=== PATIENT | female | born 1960 | race Caucasian/White ===

== ENCOUNTER 2019-01-04 11:18 | Emergency (ER) | payer OTHER ==
[2019-01-04 11:41] VITALS: BP 111/63; PULSE 98; O2SAT 97
[2019-01-04] MEDS ORDERED: TORAdol 30 mg Injection IM ONE (11:45)
[2019-01-04] MEDS ORDERED: TORAdol 30 mg Injection ONE (11:49)
--- NOTE | 2019-01-04 11:59 | ERPHSYRPT ---
- History of Present Illness Time Seen by Provider: 01/04/19 11:58 Source: patient Exam Limitations: no limitations Patient Subjective Stated Complaint: states yesterday began having pain to left foot. today pain is increased and has redness to left great toe. Triage Nursing Assessment: amublated to room per self guarding left foot. redness and slight swelling noted to left great toe. tender to touch Physician History: states yesterday began having pain to left foot. today pain is increased and has redness to left great toe. Method of Injury: unknown Occurred: yesterday Quality: constant Severity of Pain-Max: moderate Severity of Pain-Current: moderate Allergies/Adverse Reactions: glycopyrrolate [From Ruel] Allergy (Verified 09/24/12 06:20) headache and increased b/p Home Medications: Insulin Detemir [Levemir] 40 unit SQ BID 09/22/12 [History] Insulin Lispro [Humalog] 100 unit SQ PRN 09/22/12 [History] Levothyroxine Sodium [Synthroid] DAILY 09/22/12 [History] Lisinopril/Hydrochlorothiazide [Lisinopril-Hctz 20-25 mg Tab] 1 each PO DAILY [History] Magnesium Oxide 400 mg [Mag-Ox 400] 800 mg PO DAILY 09/22/12 [History] Metformin HCl 500 mg [Glucophage 500 MG] 1,000 mg PO BID 09/22/12 [History] Metoprolol Tartrate 25 mg [Lopressor 25MG Tab] 50 mg PO DAILY 09/22/12 [ History] Hx Tetanus, Diphtheria Vaccination/Date Given: No Hx Influenza Vaccination/Date Given: Yes Hx Pneumococcal Vaccination/Date Given: Yes Immunizations Up to Date: No - Review of Systems Constitutional: No Fever, No Chills Eyes: No Symptoms Ears, Nose, & Throat: No Symptoms Respiratory: No Cough, No Dyspnea Cardiac: No Chest Pain, No Edema, No Syncope Abdominal/Gastrointestinal: No Abdominal Pain, No Nausea, No Vomiting, No Diarrhea Genitourinary Symptoms: No Dysuria Musculoskeletal: No Back Pain, No Neck Pain Skin: Cellulitis, No Rash Neurological: No Dizziness, No Focal Weakness, No Sensory Changes Psychological: No Symptoms Endocrine: No Symptoms All Other Systems: Reviewed and Negative - Past Medical History Pertinent Past Medical History: Yes Neurological History: No Pertinent History ENT History: No Pertinent History Cardiac History: High Cholesterol, Hypertension Respiratory History: Asthma, Pneumonia Endocrine Medical History: Diabetes Type II, Hypothyroidism Musculoskeletal History: Arthritis GI Medical History: Gallbladder Disease, Pancreatitis, Ulcer Psycho-Social History: No Pertinent History Female Reproductive Disorders: No Pertinent History - Past Surgical History Past Surgical History: Yes Neuro Surgical History: No Pertinent History Cardiac: No Pertinent History Respiratory: No Pertinent History Gastrointestinal: Cholecystectomy Genitourinary: No Pertinent History Musculoskeletal: Orthopedic Surgery Female Surgical History: Section, Hysterectomy Other Surgical History: times 2,stomach kassi times 2,rt arm ortho surgery - Social History Smoking Status: Never smoker Exposure to second hand smoke: Yes Drug Use: none Patient Lives Alone: Yes - Female History Hx Now: No - Nursing Vital Signs Nursing Vital Signs: Initial Vital Signs Temperature 98 F 01/04/19 11:30 Pulse Rate 98 H 01/04/19 11:30 Respiratory Rate 16 01/04/19 11:30 Blood Pressure 111/63 01/04/19 11:30 O2 Sat by Pulse Oximetry 97 01/04/19 11:30 Pain Scale Pain Intensity 8 - Physical Exam General Appearance: alert Eyes, Ears, Nose, Throat Exam: moist mucous membranes Neck Exam: non-tender, supple Cardiovascular/Respiratory Exam: chest non-tender, normal breath sounds, regular rate/rhythm, no respiratory distress Gastrointestinal/Abdominal Exam: non-tender, guarding Back Exam: normal inspection, No vertebral tenderness Foot Exam: left foot: pain, soft tissue tenderness, swelling Neuro/Tendon Exam: normal sensation, normal motor functions Mental Status Exam: alert, oriented x 3, cooperative Skin Exam: normal color, warm, dry SpO2: 97 - Course Nursing assessment & vital signs reviewed: Yes Ordered Tests: Active Orders 24 hr Category Date Time Status CBC W DIFF Stat Lab 01/04/19 12:00 Completed CMP Stat Lab 01/04/19 12:00 Received Uric Acid Stat Lab 01/04/19 12:00 Received Medication Summary Discontinued Medications Generic Name Dose Route Start Last Admin Trade Name Freq PRN Reason Stop Dose Admin Ketorolac Tromethamine 60 mg 01/04/19 11:45 01/04/19 11:52 Toradol 30 Mg Injection IM 01/04/19 11:46 60 mg STAT ONE Administration Ketorolac Tromethamine Confirm 01/04/19 11:49 Toradol 30 Mg Injection Administered 01/04/19 11:50 Dose 60 mg .ROUTE .STK-MED ONE Lab/Rad Data: Laboratory Result Diagrams 01/04/19 12:00 Laboratory Results 01/04/19 Range/Units 12:00 WBC 6.5 (4.0-10.5) K/mm3 RBC 4.64 (4.1-5.4) M/mm3 Hgb 14.0 (12.0-16.0) gm/dl Hct 43.2 (35-47) % MCV 93.1 (78-100) fl MCH 30.2 (26-32) pg MCHC 32.4 (32-36) g/dl RDW 13.7 (11.5-14.0) % Plt Count 248 (150-450) K/mm3 MPV 9.1 (6-9.5) fl Gran % 63.7 (36.0-66.0) % Eos # (Auto) 0.14 (0-0.5) Absolute Lymphs (auto) 1.55 (1.0-4.6) Absolute Monos (auto) 0.64 (0.0-1.3) Lymphocytes % 23.8 L (24.0-44.0) % Monocytes % 9.8 (0.0-12.0) % Eosinophils % 2.2 (0.00-5.0) % Basophils % 0.5 (0.0-0.4) % Absolute Granulocytes 4.14 (1.4-6.9) Basophils # 0.03 (0-0.4) - Progress Progress: improved, pain not gone completely Counseled pt/family regarding: lab results, diagnosis, need for follow-up - Departure Departure Disposition: Home Clinical Impression: Gout attack Qualifiers: Gout site: toe Gout etiology: due to renal impairment Laterality: left Qualified Code(s): M10.372 - Gout due to renal impairment, left ankle and foot Condition: Stable Critical Care Time: No Referrals: RASHID MCCOLLUM MD [Primary Care Provider] - Instructions: Lifestyle Changes to Manage Gout, Gout Additional Instructions: JOAN ROSEN was seen on 01/04/19 n the Emergency Room. At that time you were treated for an emergent condition, during your visit Laboratory, Radiology and/or other procedures may have been ordered. It is very important that you follow-up with your Primary Care Physician RASHID MCCOLLUM within the next 24- 48 hours to review your Emergency Room visit and the final results of testing that was ordered. Some test results such as Urine Cultures, Blood Cultures, and other cultures if ordered will not be finalized for 24-48 hours. If you do not have a Primary Care Provider please call the medical records department at [phone] ext [phone] to obtain a copy of your results or you may sign into our patient portal to obtain these results by visiting us @ [email or web address] and completing the following steps: 1. Click on the Patient Portal link 2. Click the Patient Self Enrollment Link to complete the enrollment form and entering your 3. Once the enrollment form is completed you will receive an email with a temporary ID and password at the email address you provided. 4. Next choose a user name and password. Your user name must be at least 4 characters long and your password must be at least 4 characters long. 5. Choose a security question from the list and provide your answer to the question. If you already have signed into the Health Portal you may access your Health Care Information 15/04 by the following steps: 1. Login to our website @ [email or web address] 2. Enter your original user name and password. FAQS The [facility] Health Portal is an online tool that contains your Lab Results, Radiology Reports, Visit History, Discharge Instructions and Health Summary Lab and Radiology Results will not be available for 72 hours on the portal. The Portal is a secure site, passwords are encryted and URLs are re-written so they cannot be copied and pasted. You and authorized family members are the only ones who can access your Portal. Also there is a timeout feature that protects your information if you leave the Portal page open. If you have technical difficulty please use the Contact Us link on the page this will allow you to submit any questions you have regarding the Portal or you may contact the Medical Record Department at [phone] ext [phone]. Forms: Work/School Release Form Prescriptions: Indomethacin 25 mg [Indocin 25 MG] 25 mg PO TID #20 capsule
[2019-01-04 12:11] LABS: BASOPHIL % 0.5 % (0.0-0.4); Basophil (Absolute #) 0.03 (0-0.4); Eosinophil % 2.2 % (0.00-5.0); Eosinophil (Absolute #) 0.14 (0-0.5); Granulocyte Absolute (ANC) 4.14 (1.4-6.9); Granulocytes % 63.7 % (36.0-66.0); Hematocrit 43.2 % (35-47); Lymphocyte (Absolute #) 1.55 (1.0-4.6); Lymphocytes % 23.8 % (24.0-44.0); Mean Cell Volume 93.1 fl (78-100); Mean Corpuscular Hemoglobin 30.2 pg (26-32); Mean Corpuscular Hgb Concent. 32.4 g/dl (32-36); Mean Platelet Volume 9.1 fl (6-9.5); Monocyte (Absolute #) 0.64 (0.0-1.3); Monocytes % 9.8 % (0.0-12.0); Platelet Count 248 K/mm3 (150-450); Red Blood Count 4.64 M/mm3 (4.1-5.4); Red Cell Distribution Width 13.7 % (11.5-14.0); White Blood Count 6.5 K/mm3 (4.0-10.5)
[2019-01-04 12:25] LABS: ALBUMIN 4.1 g/dL (3.5-5.0); ALKALINE PHOSPHATASE 70 U/L (38-126); BLOOD UREA NITROGEN 17 mg/dL (7-17); CHLORIDE 103 mmol/L (98-107); Carbon Dioxide 30 mmol/L (22-30); Creatinine 1 0.75 mg/dL (0.52-1.04); Glucose 102 mg/dL (74-106); SGOT/AST 24 U/L (14-36); SGPT/ALT 15 U/L (0-35); SODIUM 141 mmol/L (137-145); Total Protein 7.4 g/dL (6.3-8.2); Uric Acid 7.5 mg/dL (2.6-6.0)
== END 2019-01-04 12:56 | disposition home or self-care (01) ==
LOC: ED 11:18
DX: M10.372 Gout due to renal impairment, left ankle and foot (principal); M79.672 Pain in left foot; I10 Essential (primary) hypertension; E78.00 Pure hypercholesterolemia, unspecified; E11.9 Type 2 diabetes mellitus without complications; Z79.4 Long term (current) use of insulin; E03.9 Hypothyroidism, unspecified
CPT/HCPCS: 36415; 80053; 84550; 85025; 96372; 99284; J1885

== ENCOUNTER 2019-08-10 08:15 | Emergency (ER) | payer OTHER ==
[2019-08-10] MEDS ORDERED: MORPHINE SULFATE 10 MG/ML IV ONE (08:49)
[2019-08-10] MEDS ORDERED: Zofran 4 MG/2 ML VIAL IV ONE (08:49)
--- NOTE | 2019-08-10 08:50 | ERPHSYRPT ---
- History of Present Illness Time Seen by Provider: 08/10/19 08:35 Source: patient Exam Limitations: no limitations Patient Subjective Stated Complaint: Pt states "I woke up yesterday morning and both sides of my neck are killing me. It hurts so bad." Triage Nursing Assessment: Pt presented alert and oriented X 3, skin pwd Pt ambulates with an upright steady gait, able to speak in clear full sentences. Pt in rubbing and holding her neck, no apparent respiratory distress. Physician History: The patient is a 58-year-old female with a past history significant for hypertension and diabetes presents with a chief complaint of neck pain. Onset was yesterday morning upon awakening. She endorses having neck pain located to the left and right lateral aspect of her neck and posterior aspect of her neck that has reportedly been persistent since yesterday morning and gradually getting worse since that time. The pain is described as a sharp pain that waxes and wanes in severity and is currently moderate to severe. HEENT there is having difficulty ranging her neck, specifically laterally left and right in addition to extending and flexing the neck. The patient also dorsum and pain with swallowing. Prior to this, she denied any specific illness, specifically URI symptoms,, toothache, immunosuppression, recent trauma. The patient also dorsum and occipital headache due to the pain. She reportedly experienced neck pain over 20 years ago but does not suffer from neck pain frequently. She denied having any dizziness, changes in her visual acuity, diplopia, numbness or tingling in her hands and feet her any focal weakness. The patient is not anticoagulated and denies hx of malignancy. She reportedly took 2 aspirin this morning for the pain with no relief and decided to come to the emergency department for further evaluation and management. Timing/Duration: yesterday Severity: severe Modifying Factors: Improves With: movement Associated Symptoms: No nausea, No vomiting, No abdominal pain Allergies/Adverse Reactions: glycopyrrolate [From Ruel] Allergy (Verified 01/04/19 12:30) headache and increased b/p Home Medications: Levothyroxine Sodium [Synthroid] 75 mcg PO DAILY 09/22/12 [History] Metformin HCl 500 mg [Glucophage 500 MG] 1,000 mg PO BID 09/22/12 [History] Metoprolol Tartrate 25 mg [Lopressor 25MG Tab] 50 mg PO DAILY 09/22/12 [ History] Empagliflozin [Jardiance] 10 mg PO DAILY 01/04/19 [History] Ergocalciferol (Vitamin D2) [Vitamin D2] 50,000 units PO WEEKLY 01/04/19 [ History] Furosemide 20 mg [Lasix 20 mg] 20 mg PO DAILY 01/04/19 [History] Liraglutide [Victoza 2-Juan Pablo] 18 mg IJ DAILY 01/04/19 [History] Losartan Potassium [Cozaar] 100 mg PO DAILY 01/04/19 [History] Dulaglutide [Trulicity] 0.5 ml IM DAILY 08/10/19 [History] Hx Tetanus, Diphtheria Vaccination/Date Given: No Hx Influenza Vaccination/Date Given: No Hx Pneumococcal Vaccination/Date Given: No Immunizations Up to Date: Yes - Review of Systems Constitutional: No Fever, No Chills, No Fatigue, No Weight Loss Eyes: No Symptoms Ears, Nose, & Throat: Throat Pain, Painful Swallowing, Other (Neck pain), No Nose Congestion Cardiac: No Symptoms, No Chest Pain, No Edema, No Palpitations, No Syncope Abdominal/Gastrointestinal: No Abdominal Pain, No Nausea, No Vomiting Musculoskeletal: Neck Pain, No Fall, No Injury Skin: No Symptoms Neurological: Headache, No Dizziness, No Focal Weakness, No Gait Changes, No Sensory Changes, No Speech Changes, No Tremors, No Vertigo Endocrine: No Symptoms Hematologic/Lymphatic: No Symptoms All Other Systems: Reviewed and Negative - Past Medical History Pertinent Past Medical History: Yes Neurological History: No Pertinent History ENT History: No Pertinent History Cardiac History: High Cholesterol, Hypertension Respiratory History: Asthma, Pneumonia Endocrine Medical History: Diabetes Type II, Hypothyroidism Musculoskeletal History: Arthritis GI Medical History: Gallbladder Disease, Pancreatitis, Ulcer Psycho-Social History: No Pertinent History Female Reproductive Disorders: No Pertinent History - Past Surgical History Past Surgical History: Yes Neuro Surgical History: No Pertinent History Cardiac: No Pertinent History Respiratory: No Pertinent History Gastrointestinal: Cholecystectomy Genitourinary: No Pertinent History Musculoskeletal: Orthopedic Surgery Female Surgical History: Section, Hysterectomy Other Surgical History: times 2,stomach kassi times 2,rt arm ortho surgery - Social History Smoking Status: Never smoker Exposure to second hand smoke: Yes Drug Use: none Patient Lives Alone: Yes - Female History Hx Now: No - Nursing Vital Signs Nursing Vital Signs: Initial Vital Signs Temperature 98.3 F 08/10/19 08:19 Pulse Rate 98 H 08/10/19 08:19 Respiratory Rate 16 08/10/19 08:19 Blood Pressure 173/84 08/10/19 08:19 O2 Sat by Pulse Oximetry 99 08/10/19 08:19 Pain Scale Pain Intensity 5 - Physical Exam General Appearance: mild distress Eye Exam: PERRL/EOMI, eyes nml inspection, No scleral icterus, No pale conjunctivae Ears, Nose, Throat Exam: pharynx normal, moist mucous membranes, other (No evidence of dental infection, [place] or [employer]), No TM abnormal (R), No TM abnormal (L), No pharyngeal erythema, No tonsillar exudate Neck Exam: midline tenderness, other (Moderate tenderness noted upon palpation to the lateral and posterior aspects of neck. Patient had difficulty ranging neck due to pain with lateral ranging, extension, and flexion. Patient had pain with trying to stick her tongue out. ), No JVD, No subcutaneous emphysema Respiratory Exam: normal breath sounds, lungs clear, respiratory distress, No chest tenderness Cardiovascular Exam: regular rate/rhythm, normal heart sounds, normal peripheral pulses, capillary refill <2 sec, No murmur, No friction rub, No gallop, No tachycardia Gastrointestinal/Abdomen Exam: soft, No tenderness Extremity Exam: normal inspection Neurologic Exam: alert, oriented x 3, cooperative, manager income tax II-XII nml as tested, normal mood/affect, nml cerebellar function, sensation nml, No motor deficits, No sensory deficit, No disoriented, No confusion, No intoxicated appearance, No facial droop, No slurred speech, No dysarthria, No EOM palsy Skin Exam: normal color, warm, dry Lymphatic Exam: No adenopathy SpO2 Interpretation: normal SpO2: 99 O2 Delivery: Room Air - Course Nursing assessment & vital signs reviewed: Yes - Radiology Exams Chest X-ray Interpretation: Interpreted by me, Reviewed by me (No acute process involving the chest. Appears there may be soft tissue swelling noted to the R lateral neck deviating her trachea to the L. F/u CT neck pending) Ordered Tests: Medication Summary Discontinued Medications Generic Name Dose Route Start Last Admin Trade Name Freq PRN Reason Stop Dose Admin Morphine Sulfate 6 mg 08/10/19 08:49 08/10/19 09:11 Morphine Sulfate 10 Mg/Ml IV 08/10/19 08:50 6 mg STAT ONE Administration Morphine Sulfate Confirm 08/10/19 09:07 Morphine Sulfate 10 Mg/Ml Administered 08/10/19 09:08 Dose 10 mg .ROUTE .STK-MED ONE Ondansetron HCl 4 mg 08/10/19 08:49 08/10/19 09:10 Zofran 4 Mg/2 Ml Vial IV 08/10/19 08:50 4 mg STAT ONE Administration Ondansetron HCl Confirm 08/10/19 09:07 Zofran 4 Mg/2 Ml Vial Administered 08/10/19 09:08 Dose 4 mg .ROUTE .STK-MED ONE Lab/Rad Data: Laboratory Result Diagrams 08/10/19 08:45 08/10/19 09:26 Laboratory Results 08/10/19 08/10/19 Range/Units 09:26 08:45 WBC 9.1 (4.0-10.5) K/mm3 RBC 4.56 (4.1-5.4) M/mm3 Hgb 14.7 (12.0-16.0) gm/dl Hct 44.2 (35-47) % MCV 96.9 (78-100) fl MCH 32.2 H (26-32) pg MCHC 33.3 (32-36) g/dl RDW 12.4 (11.5-14.0) % Plt Count 243 (150-450) K/mm3 MPV 10.2 H (6-9.5) fl Gran % 72.0 H (36.0-66.0) % Eos # (Auto) 0.21 (0-0.5) Absolute Lymphs (auto) 1.26 (1.0-4.6) Absolute Monos (auto) 1.04 (0.0-1.3) Lymphocytes % 13.9 L (24.0-44.0) % Monocytes % 11.5 (0.0-12.0) % Eosinophils % 2.3 (0.00-5.0) % Basophils % 0.3 (0.0-0.4) % Absolute Granulocytes 6.51 (1.4-6.9) Basophils # 0.03 (0-0.4) Sodium Direct 136 L (138-146) mmol/L Potassium 3.7 (3.5-4.9) mmol/L Chloride 95 L (98-109) mmol/L Carbon Dioxide 30 H (24-29) mmol/L Venous BUN 26 (8-26) mg/dL Creatinine 0.8 (0.6-1.3) mg/dL Glucose 126 H (70-105) mg/dL Ionized Calcium 1.08 L (1.12-1.32) mmol/L - Progress Progress: improved Progress Note: 08/10/19 11:29 Patient feeling better but with some ongoing neck pain. lately the patient in terms of her CT scan results and other otherwise benign. Recommend she followup with her primary care provider, Dr. Mccollum, and we'll prescribe naproxen in addition to tizanidine for her to take for pain relief. She is currently calling for a ride. Discussed with : Josefa Counseled pt/family regarding: lab results, diagnosis, need for follow-up, rad results - Departure Departure Disposition: Home Clinical Impression: Neck pain Condition: Stable Critical Care Time: No Referrals: RASHID MCCOLLUM MD [Primary Care Provider] - Instructions: Generalized Neck Pain (DC) Additional Instructions: please follow with her primary care provider within the week. Here she may want to refer her to physical therapy for ongoing pain. Please take the medication as prescribed. Plan of Treatment: Nontoxic in appearance. Initial differential included carotid or vertebral dissection, soft tissue abscess such as RPA/deep space neck infection, osteolytic lesion of the spine, muscle spasm such as torticollis. Imaging was negative and the patient was ultimately discharged home with diagnosis of neck pain presumed to be from MSK etiology. Naproxen and tizanidine were prescribed for symptomatic relief. She was instructed to return to the ED if her symptoms became worse and to otherwise f/u with her PCP if needed. She agreed with and verbally understood the discharge plan. Prescriptions: Tizanidine HCl 2 mg PO Q8H PRN PRN #20 tablet PRN Reason: Pain Naproxen 500 mg [Naprosyn 500 MG] 500 mg PO BID 5 Days #20 tablet
[2019-08-10] MEDS ORDERED: MORPHINE SULFATE 10 MG/ML ONE (09:07)
[2019-08-10] MEDS ORDERED: Zofran 4 MG/2 ML VIAL ONE (09:07)
[2019-08-10 09:28] LABS: Absolute Neutrophil Ct (ANC) 6.51 (1.4-6.9); BASOPHIL % 0.3 % (0.0-0.4); Basophil (Absolute #) 0.03 (0-0.4); Eosinophil % 2.3 % (0.00-5.0); Eosinophil (Absolute #) 0.21 (0-0.5); Hematocrit 44.2 % (35-47); Hemoglobin 14.7 gm/dl (12.0-16.0); Lymphocyte (Absolute #) 1.26 (1.0-4.6); Lymphocytes % 13.9 % (24.0-44.0); Mean Cell Volume 96.9 fl (78-100); Mean Corpuscular Hemoglobin 32.2 pg (26-32); Mean Corpuscular Hgb Concent. 33.3 g/dl (32-36); Mean Platelet Volume 10.2 fl (6-9.5); Monocyte (Absolute #) 1.04 (0.0-1.3); Monocytes % 11.5 % (0.0-12.0); Platelet Count 243 K/mm3 (150-450); Red Blood Count 4.56 M/mm3 (4.1-5.4); Red Cell Distribution Width 12.4 % (11.5-14.0); White Blood Count 9.1 K/mm3 (4.0-10.5)
[2019-08-10 09:38] LABS: ISTAT CREA 0.8 mg/dL (0.6-1.3)
--- NOTE | 2019-08-10 10:01 | XRAY ---
Indication: Neck pain. Comparison: November 12, 2017. PA/lateral chest demonstrates normal heart and lungs. Bony thorax intact again with mild degenerative changes. No new/acute findings.
--- NOTE | 2019-08-10 11:19 | XRAY ---
Indication: Bilateral neck pain. Difficulty swallowing. Conventional contrast enhanced CTA [place] performed using 80 cc Isovue 370 contrast. Two-dimensional sagittal and coronal reformatted images obtained. Additional 3-dimensional reformatted images obtained using a separate workstation. Comparison: None Distal internal carotid arteries are normal in course and caliber with minimal calcifications on the left parasellar segment. Normal carotid terminus with normal branching anterior and middle cerebral arteries bilaterally. More distal anterior cerebral, middle cerebral, anterior communicating, and right posterior communicating arteries unremarkable. Anterior communicating and left posterior communicating artery not clearly identified. Examination of the posterior circulation demonstrates dominant left vertebral artery with normal branching posterior inferior cerebellar arteries bilaterally. Basilar artery is normal in CTA appearance with normal branching posterior cerebral and anterior cerebellar arteries bilaterally. Venous system unremarkable. No abnormal enhancing intra or extra-axial mass. Bony calvarium intact. Visualized paranasal sinuses and mastoid air cells are clear. Impression: 1. Minimal left internal carotid artery calcifications without critical stenosis/obstruction. 2. Remaining CTA [place] is negative. CT DI 46.86.
[2019-08-10 12:09] VITALS: BP 133/67; PULSE 76
--- NOTE | 2019-08-10 13:55 | XRAY ---
Indication: Bilateral neck pain. Difficulty swallowing. Conventional contrast enhanced CTA neck performed using 80 cc Isovue 370 contrast. Two-dimensional sagittal and coronal reformatted images obtained. Additional 3-dimensional reformatted images obtained using a separate workstation. Comparison: None Visualized aortic arch is normal in course and caliber with anatomic variant for bovine arch. Left and right carotid arteries of the neck are widely patent and normal in CTA appearance. Vertebral arteries are also bilaterally patent with the left slightly larger in caliber. Parotid and submandibular glands are bilaterally symmetric. Bilateral dental amalgams produces beam artifact. A few centimeter/subcentimeter cervical and submandibular lymph nodes, none pathologically enlarged. Thyroid gland enhances homogeneously. Supra and infraglottic airway widely patent. Normal epiglottis. Cervical spine intact with mild multilevel degenerative changes. Base of the brain and lung apices unremarkable. Impression: Anatomic variant for a bovine arch. Remaining CTA neck is normal. CT DI 46.86.
[2019-08-11 16:42] VITALS: O2SAT 99
== END 2019-08-10 12:07 | disposition home or self-care (01) ==
LOC: ED 08:15
DX: M54.2 Cervicalgia (principal); I10 Essential (primary) hypertension; E11.9 Type 2 diabetes mellitus without complications; Z79.899 Other long term (current) drug therapy; E78.00 Pure hypercholesterolemia, unspecified; E03.9 Hypothyroidism, unspecified
CPT/HCPCS: 36000; 36415; 70496; 70498; 71046; 80047; 85025; 96374; 96375; 99284; J2270; J2405

== ENCOUNTER 2020-12-06 15:55 | Emergency (ER) | payer OTHER ==
--- NOTE | 2020-12-06 16:04 | ERPHSYRPT ---
- History of Present Illness Time Seen by Provider: 12/06/20 16:04 Source: patient Exam Limitations: no limitations Physician History: This is a 59-year-old white female with history of diabetes, hypertension hypothyroidism and presents 5 days after injuring her right forearm. It was more of a scrape/abrasion. Patient is chronically on Keflex 250 mg at night. She also has been keeping the area clean with soap and water and applying antibiotic ointment to the site. Patient became concerned because she felt that there was some pus present and she was hoping to be placed on antibiotics. She also wanted the wound site checked. Occurred: days ago (5) Method of Injury: fell Quality: burning Extremities Pain Location: forearm: right Modifying Factors: Improves With: nothing Associated Symptoms: none Allergies/Adverse Reactions: glycopyrrolate [From Ruel] Allergy (Verified 12/06/20 16:14) headache and increased b/p Home Medications: Levothyroxine Sodium [Synthroid] 75 mcg PO DAILY 09/22/12 [History] Metformin HCl 500 mg [Glucophage 500 MG] 1,000 mg PO BID 09/22/12 [History] Metoprolol Tartrate 25 mg [Lopressor 25MG Tab] 50 mg PO DAILY 09/22/12 [History] Empagliflozin [Jardiance] 10 mg PO DAILY 01/04/19 [History] Ergocalciferol (Vitamin D2) [Vitamin D2] 50,000 units PO WEEKLY 01/04/19 [History] Furosemide 20 mg [Lasix 20 mg] 20 mg PO DAILY 01/04/19 [History] Liraglutide [Victoza 2-Juan Pablo] 18 mg IJ DAILY 01/04/19 [History] Losartan Potassium [Cozaar] 100 mg PO DAILY 01/04/19 [History] Dulaglutide [Trulicity] 0.5 ml IM DAILY 08/10/19 [History] Hx Tetanus, Diphtheria Vaccination/Date Given: No Hx Influenza Vaccination/Date Given: No Hx Pneumococcal Vaccination/Date Given: No Travel Risk - International Travel Have you traveled outside of the country in past 3 weeks: No - Coronavirus Screening Are you exhibiting any of the following symptoms?: No Close contact with a COVID-19 positive Pt in past 14-21 Days: No - Review of Systems Constitutional: No Symptoms Eyes: No Symptoms Ears, Nose, & Throat: No Symptoms Respiratory: No Symptoms Cardiac: No Symptoms Abdominal/Gastrointestinal: No Symptoms Genitourinary Symptoms: No Symptoms Musculoskeletal: Injury Skin: Other (Abrasion with fibrinous exudate present) Neurological: No Symptoms Psychological: No Symptoms Endocrine: No Symptoms Hematologic/Lymphatic: No Symptoms Immunological/Allergic: No Symptoms - Past Medical History Pertinent Past Medical History: Yes Neurological History: No Pertinent History ENT History: No Pertinent History Cardiac History: High Cholesterol, Hypertension Respiratory History: Asthma, Pneumonia Endocrine Medical History: Diabetes Type II, Hypothyroidism Musculoskeletal History: Arthritis GI Medical History: Gallbladder Disease, Pancreatitis, Ulcer Psycho-Social History: No Pertinent History Female Reproductive Disorders: No Pertinent History - Past Surgical History Past Surgical History: Yes Neuro Surgical History: No Pertinent History Cardiac: No Pertinent History Respiratory: No Pertinent History Gastrointestinal: Cholecystectomy Genitourinary: No Pertinent History Musculoskeletal: Orthopedic Surgery Female Surgical History: Section, Hysterectomy Other Surgical History: times 2,stomach kassi times 2,rt arm ortho surgery - Social History Smoking Status: Never smoker Exposure to second hand smoke: Yes Drug Use: none Patient Lives Alone: Yes - Nursing Vital Signs Nursing Vital Signs: Initial Vital Signs Temperature 99.4 F 12/06/20 16:02 Pulse Rate 82 12/06/20 16:02 Respiratory Rate 16 12/06/20 16:02 Blood Pressure 167/95 12/06/20 16:02 O2 Sat by Pulse Oximetry 100 12/06/20 16:02 Pain Scale Pain Intensity 2 - Physical Exam General Appearance: no apparent distress, alert, anxiety Eyes, Ears, Nose, Throat Exam: normal ENT inspection, moist mucous membranes Neck Exam: normal inspection, non-tender, supple, full range of motion Cardiovascular/Respiratory Exam: chest non-tender, no respiratory distress Abdominal Exam: non-tender Back Exam: normal inspection, normal range of motion, No CVA tenderness, No vertebral tenderness Shoulder Exam: normal inspection, non-tender, no evidence of injury, normal ROM Elbow/Forearm Exam: normal ROM, abrasions (There is approximately 8 to 10 cm axially oriented abrasion site with fibrinous exudate and eschar present. The open abrasion does have granulation tissue present and appears healthy. There are only a few islands of eschar present. There is no significant cellulitis present. There is no odor) Wrist Exam: normal inspection, non-tender, no evidence of injury, normal ROM Hand Exam: normal inspection, non-tender, no evidence of injury, normal ROM Neuro/Tendon Exam: normal sensation, normal motor functions, normal tendon functions, responds to pain, no evidence tendon injury Mental Status Exam: alert, oriented x 3, cooperative Skin Exam: abrasion (Right forearm with islands of fibrinous exudate/eschar present.), other SpO2 Interpretation: normal O2 Delivery: Room Air - Course Nursing assessment & vital signs reviewed: Yes - Progress Progress: unchanged Counseled pt/family regarding: diagnosis, need for follow-up - Departure Departure Disposition: Home Clinical Impression: Abrasion of right forearm, Wound exudate without odor Condition: Stable Critical Care Time: No Referrals: RASHID MCCOLLUM MD [Primary Care Provider] - Additional Instructions: Use my Keflex prescription for the next 5 days then return back to your daily Keflex prescription. Each day, scrub the right forearm abrasion site and free it from any fibrinous exudate/eschar. Wash the site with soap and water. Cover the wound with antibiotic ointment of choice each day followed by a nonadhesive bandage. Follow-up with Dr. Mccollum's office for reevaluation in the next 2 to 3 days. Prescriptions: Cephalexin Mh 500 mg [Keflex 500 mg] 500 mg PO TID #15 capsule
[2020-12-06 16:14] VITALS: O2SAT 100
[2020-12-06 16:37] VITALS: BP 133/76; PULSE 75
== END 2020-12-06 16:36 | disposition home or self-care (01) ==
LOC: ED 15:55
DX: S50.811A Abrasion of right forearm, initial encounter (principal); E11.9 Type 2 diabetes mellitus without complications; I10 Essential (primary) hypertension; E03.9 Hypothyroidism, unspecified; W19.XXXA Unspecified fall, initial encounter; Z79.899 Other long term (current) drug therapy
CPT/HCPCS: 99283

== ENCOUNTER 2021-02-13 02:30 | Emergency (ER) | payer OTHER ==
[2021-02-13 02:51] VITALS: O2SAT 99
--- NOTE | 2021-02-13 03:18 | ERPHSYRPT ---
- History of Present Illness Time Seen by Provider: 02/13/21 02:50 Source: patient, EMS Exam Limitations: clinical condition, intoxication Patient Subjective Stated Complaint: pt states tonight she got up from her recliner and fell. states she wasnt able to get up at that time, so she slept on the floor. states she woke up with "excruciating pain" in her lt shoulder. Triage Nursing Assessment: pt alert and oriented, answers questions approp. pt [facility] pt moving lt arm but c/o pain in her shoulder with movement. no bruising or injury noted to shoulder. cap refill and radial pulse wnl. Physician History: This is a 60-year-old obese white female with a history of hypothyroidism, diabetes, and hypertension who had a few drinks of alcohol this morning and got up from her recliner and fell onto her left shoulder. Patient states that she has been falling frequently. She is on a new medication for her "shakiness" she does not recall what happened but found herself on the floor with left shoulder pain that radiates up into her neck. The EMS was contacted and the patient was brought in to the emergency department by them. Patient denies chest pain and she denies shortness of breath. She has no abdominal pain. Occurred: this morning Reason for Fall: unknown (Although she had been drinking alcohol), fell from standing pos Injuries/Pain Location: neck, upper extremity (Shoulder left side) Loss of Consciousness: brief (seconds) Quality: aching Severity of Pain-Max: moderate Severity of Pain-Current: moderate Modifying Factors: Improves With: movement Associated Symptoms (Fall): extremity injury (Left shoulder.), slurred speech Allergies/Adverse Reactions: glycopyrrolate [From Ruel] Allergy (Verified 02/13/21 03:10) headache and increased b/p Home Medications: Levothyroxine Sodium [Synthroid] 75 mcg PO DAILY 09/22/12 [History] Metformin HCl 500 mg [Glucophage 500 MG] 1,000 mg PO BID 09/22/12 [History] Metoprolol Tartrate 25 mg [Lopressor 25MG Tab] 50 mg PO DAILY 09/22/12 [History] Empagliflozin [Jardiance] 10 mg PO DAILY 01/04/19 [History] Ergocalciferol (Vitamin D2) [Vitamin D2] 50,000 units PO WEEKLY 01/04/19 [History] Furosemide 20 mg [Lasix 20 mg] 20 mg PO DAILY 01/04/19 [History] Liraglutide [Victoza 2-Juan Pablo] 18 mg IJ DAILY 01/04/19 [History] Losartan Potassium [Cozaar] 100 mg PO DAILY 01/04/19 [History] Dulaglutide [Trulicity] 0.5 ml IM DAILY 08/10/19 [History] Hx Tetanus, Diphtheria Vaccination/Date Given: No Hx Influenza Vaccination/Date Given: Yes Hx Pneumococcal Vaccination/Date Given: Yes Immunizations Up to Date: No Travel Risk - International Travel Have you traveled outside of the country in past 3 weeks: No - Coronavirus Screening Are you exhibiting any of the following symptoms?: No Close contact with a COVID-19 positive Pt in past 14-21 Days: No - Vaccine Status Have you recieved a Covid-19 vaccination: Yes [employer] Silverer: Lelaa - Vaccination Dates Date of 2cond Vaccination (if applicable): december 2020 - Review of Systems Constitutional: No Symptoms Eyes: No Symptoms Ears, Nose, & Throat: No Symptoms Respiratory: No Symptoms Cardiac: No Symptoms Abdominal/Gastrointestinal: No Symptoms Genitourinary Symptoms: No Symptoms Musculoskeletal: Fall, Injury (Left shoulder) Skin: No Symptoms Psychological: No Symptoms Endocrine: No Symptoms Hematologic/Lymphatic: No Symptoms Immunological/Allergic: No Symptoms All Other Systems: Reviewed and Negative - Past Medical History Pertinent Past Medical History: Yes Neurological History: No Pertinent History ENT History: No Pertinent History Cardiac History: High Cholesterol, Hypertension Respiratory History: Asthma, Pneumonia Endocrine Medical History: Diabetes Type II, Hypothyroidism Musculoskeletal History: Arthritis GI Medical History: Gallbladder Disease, Pancreatitis, Ulcer Psycho-Social History: No Pertinent History Female Reproductive Disorders: No Pertinent History - Past Surgical History Past Surgical History: Yes Neuro Surgical History: No Pertinent History Cardiac: No Pertinent History Respiratory: No Pertinent History Gastrointestinal: Cholecystectomy Genitourinary: No Pertinent History Musculoskeletal: Orthopedic Surgery Female Surgical History: Section, Hysterectomy Other Surgical History: times 2,stomach kassi times 2,rt arm ortho surgery - Social History Smoking Status: Never smoker Exposure to second hand smoke: Yes Drug Use: none Patient Lives Alone: No - Nursing Vital Signs Nursing Vital Signs: Initial Vital Signs Temperature 98.6 F 02/13/21 02:34 Pulse Rate 88 02/13/21 02:34 Respiratory Rate 18 02/13/21 02:34 Blood Pressure 152/94 02/13/21 02:34 O2 Sat by Pulse Oximetry 99 02/13/21 02:34 Pain Scale Pain Intensity 6 - Dowell Coma Score Best Eye Response (Marianela): (4) open spontaneously Best Verbal Response (Dowell): (5) oriented Best Motor Response (Marianela): (6) obeys commands Dowell Total: 15 - Physical Exam General Appearance: no apparent distress Head Injury: no evidence of injury Eye Exam: PERRL/EOMI, eyes nml inspection ENT Exam: airway nml, nml ext.inspection, No evidence of ENT injury Neck Exam: supple, trachea midline, full range of motion, normal alignment, other (Patient brought into emergency department with no c-collar in place) Respiratory/Chest Exam: normal breath sounds, No chest tenderness, No respiratory distress, No ecchymosis, No crepitus Cardiovascular Exam: normal heart sounds, regular rate/rhythm Gastrointestinal Exam: soft, normal bowel sounds, No tenderness Rectal Exam: not done Back Exam: normal inspection, normal range of motion, No CVA tenderness, No vertebral tenderness Extremity Exam: normal inspection, normal range of motion, capillary refill <3 sec, pelvis stable Neurologic Exam: alert, oriented x 3, cooperative, medical esthetician II-XII nml as tested, normal mood/affect, nml cerebellar function, nml station & gait, sensation nml Skin Exam: normal color, warm, dry SpO2 Interpretation: normal SpO2: 99 O2 Delivery: Room Air - Course Nursing assessment & vital signs reviewed: Yes Ordered Tests: Active Orders 24 hr Category Date Time Status Clean Catch Urine Specimen STAT Care 02/13/21 04:39 Active CERVICAL SPINE WO CONTRAST [CT] Stat Exams 02/13/21 03:11 Taken HEAD WITHOUT CONTRAST [CT] Stat Exams 02/13/21 03:12 Taken SHOULDER Stat Exams 02/13/21 02:45 Taken CBC W DIFF Stat Lab 02/13/21 04:50 Received CMP Stat Lab 02/13/21 04:50 Received ETHYL ALCOHOL Stat Lab 02/13/21 04:50 Received UA W/RFX UR CULTURE Stat Lab 02/13/21 04:55 Ordered Urine Triage Profile Stat Lab 02/13/21 04:55 Ordered Medication Summary Discontinued Medications Generic Name Dose Route Start Last Admin Trade Name Gianq PRN Reason Stop Dose Admin Morphine Sulfate 2 mg 02/13/21 04:40 02/13/21 04:50 Morphine Sulfate 2 Mg Inj IV 02/13/21 04:41 2 mg STAT ONE Administration Morphine Sulfate Confirm 02/13/21 04:46 Morphine Sulfate 2 Mg Inj Administered 02/13/21 04:47 Dose 2 mg .ROUTE .STK-MED ONE Ondansetron HCl 4 mg 02/13/21 04:39 02/13/21 04:50 Zofran 4 Mg/2 Ml Vial IV 02/13/21 04:40 4 mg STAT ONE Administration Ondansetron HCl 4 mg 02/13/21 04:40 Zofran 4 Mg/2 Ml Vial IV 02/13/21 04:41 STAT ONE Ondansetron HCl Confirm 02/13/21 04:46 Zofran 4 Mg/2 Ml Vial Administered 02/13/21 04:47 Dose 4 mg .ROUTE .STK-MED ONE - Progress Progress: improved, pain not gone completely, re-examined Progress Note: 02/13/21 03:23 X-ray of left shoulder reveals no acute fracture or dislocation. 02/13/21 04:16 CAT scan of the head without contrast shows no acute intracranial abnormality. CAT scan of the cervical spine without contrast shows a left C 6 facet fracture 02/13/21 04:50 Medical decision making: This patient presents with primarily left shoulder pain after a fall. She had been drinking alcohol and did not recall the events or circumstances by which she fell out of her recliner after standing up she assumes. She found herself on the ground with the left shoulder pain patient arrived to the emergency department without a cervical collar on. Patient underwent a CAT scan of the head neck and x-ray of the left shoulder. There is a mildly displaced left facet fracture of C6. We placed a hard collar on this patient and contacted [facility] trauma surgeon Dr. Contreras and neurosurgeon Dr. Coles all at the same time on the transfer center line. Dr. Coles and Ben accept the patient at [facility]. I then spoke with Dr. Tim, the emergency physician production posting clerk in the emergency department. We clarified that Dr. Coles accepts the patient to be transferred to that facility through the emergency department but the patient would be placed on the floor and did not require a ICU or telemetry monitoring type bed. Dr. Tim then accepts the patient to go to the emergency department. Counseled pt/family regarding: diagnosis, need for follow-up, rad results - Departure Departure Disposition: Home Clinical Impression: Alcohol intoxication, Fall with injury, Cervical spine fracture Condition: Stable Critical Care Time: No Referrals: RASHID MCCOLLUM MD [Primary Care Provider] -
[2021-02-13] MEDS ORDERED: Zofran 4 MG/2 ML VIAL IV ONE ×2 (04:39→04:40)
[2021-02-13] MEDS ORDERED: MORPHINE SULFATE 2 MG INJ IV ONE (04:40)
[2021-02-13] MEDS ORDERED: Zofran 4 MG/2 ML VIAL ONE (04:46)
[2021-02-13] MEDS ORDERED: MORPHINE SULFATE 2 MG INJ ONE (04:46)
[2021-02-13 05:00] LABS: Absolute Neutrophil Ct (ANC) 2.97 (1.4-6.9); BASOPHIL % 0.9 % (0.0-0.4); Basophil (Absolute #) 0.04 (0-0.4); Eosinophil % 1.4 % (0.00-5.0); Eosinophil (Absolute #) 0.06 (0-0.5); Hematocrit 39.8 % (35-47); Hemoglobin 13.2 gm/dl (12.0-16.0); Lymphocyte (Absolute #) 0.99 (1.0-4.6); Lymphocytes % 22.3 % (24.0-44.0); Mean Cell Volume 91.3 fl (78-100); Mean Corpuscular Hemoglobin 30.3 pg (26-32); Mean Corpuscular Hgb Concent. 33.2 g/dl (32-36); Mean Platelet Volume 8.8 fl (7.5-11.0); Monocyte (Absolute #) 0.37 (0.0-1.3); Monocytes % 8.4 % (0.0-12.0); Platelet Count 232 K/mm3 (150-450); Red Blood Count 4.36 M/mm3 (4.1-5.4); Red Cell Distribution Width 12.6 % (11.5-14.0); White Blood Count 4.4 K/mm3 (4.0-10.5)
[2021-02-13 05:19] VITALS: BP 139/81; PULSE 91
[2021-02-13 05:24] LABS: Appearance CLEAR (CLEAR); Bacteria RARE /HPF (NEGATIVE); Bilirubin NEGATIVE (NEGATIVE); Blood NEGATIVE Ery/ul (0-5); Epithelial Cells RARE /HPF (FEW); Glucose >=500 mg/dL (NEGATIVE); Ketones NEGATIVE (NEGATIVE); Leukocyte Esterase NEGATIVE (NEGATIVE); Nitrite NEGATIVE (NEGATIVE); Protein,Urine Dip NEGATIVE (Negative); RBC 0-2 /HPF (0-2); Specific Gravity 1.008 (1.005-1.025); Urobilinogen NEGATIVE mg/dL (0-1)
[2021-02-13 05:24] LABS: ALBUMIN 4.6 g/dL (3.5-5.0); ALKALINE PHOSPHATASE 80 U/L (38-126); ANION GAP 18.3 MEQ/L (5-15); BLOOD UREA NITROGEN 11 mg/dL (7-17); CHLORIDE 80 mmol/L (98-107); Calcium 9.1 mg/dL (8.4-10.2); Carbon Dioxide 27 mmol/L (22-30); Creatinine 1 0.57 mg/dL (0.52-1.04); EST GLOMERULAR FILTRATION RATE > 60.0 ML/MIN; ETHYL ALCOHOL 199 mg/dL (0-10); Glucose 113 mg/dL (74-106); Potassium 3.2 mmol/L (3.5-5.1); SGOT/AST 60 U/L (14-36); SGPT/ALT 31 U/L (0-35); SODIUM 123 mmol/L (137-145); Total Protein 7.7 g/dL (6.3-8.2)
[2021-02-13 05:26] LABS: WBC NONE SEEN /HPF (0-5)
[2021-02-13] MEDS ORDERED: Sodium Chloride 0.9% W/ 20 mEq KCl/LITER 1,000 ML IV SCH (05:30)
[2021-02-13] MEDS ORDERED: Sodium Chloride 0.9% W/ 20 mEq KCl/LITER 1,000 ML IV ONE (05:34)
[2021-02-13 05:36] LABS: Amphetamine,Urine NEGATIVE (NEGATIVE); Barbiturate,Urine NEGATIVE (NEGATIVE); Benzodiazepine,Urine NEGATIVE (NEGATIVE); Cocaine,Urine NEGATIVE (NEGATIVE); Methadone,Urine NEGATIVE (NEGATIVE); Opiate,Urine NEGATIVE (NEGATIVE); PCP,Urine NEGATIVE (NEGATIVE); THC,Urine NEGATIVE (NEGATIVE)
--- NOTE | 2021-02-13 08:48 | XRAY ---
Indication: Pain following fall from chair. Alcohol. Multiple contiguous axial images obtained through the head without contrast. Comparison: CTA head August 10, 2019. Normal appearing brain parenchyma, ventricles, and bony calvarium. Visualized paranasal sinuses and mastoid air cells are clear. Impression: Normal CT head without contrast exam. Comment: Preliminary interpretation was made by [facility]. No critical discrepancy.
--- NOTE | 2021-02-13 08:51 | XRAY ---
Indication: Pain following fall from chair. Alcohol. Multiple contiguous axial images obtained through the cervical spine. Sagittal and coronal reformatted images obtained. Comparison: CTA neck August 10, 2019. There is a nondisplaced fracture of left C6 facet. No other acute fracture, suspicious bony lesions, or spinal canal stenosis. There is mild multilevel degenerative endplate spurring. Sagittal and coronal reformatted images demonstrates minimal lordotic reversal, positional versus paraspinal spasm. Minimal concave deformity seen of the superior endplate C5-C7 either Schmorl nodes versus remote fractures. No acute compression fracture, subluxation, or jumped facet. Normal-appearing craniocervical junction. Visualized noncontrasted soft tissues including on apices are unremarkable. Impression: 1. Nondisplaced left C6 facet fracture. 2. Cervical lordotic reversal, positional versus paraspinal spasm. 3. C5-C7 Schmorl nodes versus remote endplate fractures. 4. Multilevel degenerative changes. Comment: Preliminary interpretation was made by [facility]. No critical discrepancy.
--- NOTE | 2021-02-13 08:53 | XRAY ---
Indication: Pain following fall from chair. Comparison: None 3 view left shoulder demonstrates mild AC degenerative arthropathy, mild degenerative changes throughout the spine, and minimal levoscoliosis centered at T2. No other bony, articular, or soft tissue abnormalities.
== END 2021-02-13 05:55 | disposition short-term general hospital (02) ==
LOC: ED 02:30
DX: F10.129 Alcohol abuse with intoxication, unspecified (principal); S12.500A Unspecified displaced fracture of sixth cervical vertebra, initial encounter for closed fracture; W19.XXXA Unspecified fall, initial encounter; Y93.9 Activity, unspecified; Y92.89 Other specified places as the place of occurrence of the external cause; M25.512 Pain in left shoulder; Z79.899 Other long term (current) drug therapy
CPT/HCPCS: 36415; 70450; 72125; 73030; 80053; 80307; 81001; 85025; 96374; 96375; 99285; G0480; J2270; J2405; L0172

== ENCOUNTER 2021-08-10 10:56 | Emergency (ER) | payer OTHER ==
[2021-08-10] MEDS ORDERED: MORPHINE SULFATE 4 MG INJ IV ONE ×2 (11:22→12:46)
[2021-08-10] MEDS ORDERED: Zofran 4 MG/2 ML VIAL IV ONE (11:22)
[2021-08-10] MEDS ORDERED: Zofran 4 MG/2 ML VIAL ONE (11:23)
[2021-08-10] MEDS ORDERED: MORPHINE SULFATE 4 MG INJ ONE ×2 (11:23→12:47)
--- NOTE | 2021-08-10 11:55 | ERPHSYRPT ---
- History of Present Illness Time Seen by Provider: 08/10/21 11:21 Source: patient Exam Limitations: no limitations Patient Subjective Stated Complaint: pt states she fell last night, lost balance and falls, she states she falls freguently, co pain to right arm, Triage Nursing Assessment: pt alert, walked in, resp easy, skin w/d/p. has deformity to right arm, unable to lift arm Physician History: 60 years old female with history of unsteady gait/balance issue with frequent falls presented in the ER after she fell on hardwood floor while walking at home yesterday evening on her right shoulder/upper arm. Denies hitting her head or loss of consciousness. Complaining of sharp moderate to severe pain in the right mid arm, more with movements and feeling better with being still closer to the chest wall. Does not have any chest pain or tenderness. No difficulty breathing. No injury anywhere else. Occurred: yesterday Method of Injury: fell Quality: sharpness Severity of Pain-Max: moderate Severity of Pain-Current: moderate Extremities Pain Location: shoulder: right, arm: right Modifying Factors: Improves With: immobilization, rest. Worsens With: movement Associated Symptoms: none Allergies/Adverse Reactions: glycopyrrolate [From Panch[place]derbolt] Allergy (Verified 08/10/21 11:04) headache and increased b/p Home Medications: Levothyroxine Sodium [Synthroid] 75 mcg PO DAILY 09/22/12 [History] Empagliflozin [Jardiance] 10 mg PO DAILY 01/04/19 [History] Dulaglutide [Trulicity] 0.5 ml IM DAILY 08/10/19 [History] Dulaglutide [Trulicity] 1 ea UD 08/10/21 [History] Primidone 50 MG [Mysoline 50Mg] 1 ea DAILY 08/10/21 [History] Hx Tetanus, Diphtheria Vaccination/Date Given: No Hx Influenza Vaccination/Date Given: Yes Hx Pneumococcal Vaccination/Date Given: Yes Immunizations Up to Date: Yes Travel Risk - International Travel Have you traveled outside of the country in past 3 weeks: No - Coronavirus Screening Are you exhibiting any of the following symptoms?: No Close contact with a COVID-19 positive Pt in past 14-21 Days: No - Vaccine Status Have you recieved a Covid-19 vaccination: Yes Fitness/Wellness Director: Moderna - Vaccination Dates Date of 2cond Vaccination (if applicable): december 2020 - Review of Systems Constitutional: No Symptoms Eyes: No Symptoms Ears, Nose, & Throat: No Symptoms Respiratory: No Symptoms Cardiac: No Symptoms Abdominal/Gastrointestinal: No Symptoms Genitourinary Symptoms: No Symptoms Musculoskeletal: Fall, Injury, Myalgias Skin: No Symptoms Neurological: No Symptoms Psychological: No Symptoms Endocrine: No Symptoms Hematologic/Lymphatic: No Symptoms Immunological/Allergic: No Symptoms - Past Medical History Pertinent Past Medical History: Yes Neurological History: No Pertinent History ENT History: No Pertinent History Cardiac History: High Cholesterol, Hypertension Respiratory History: Asthma, Pneumonia Endocrine Medical History: Diabetes Type II, Hypothyroidism Musculoskeletal History: Arthritis GI Medical History: Gallbladder Disease, Pancreatitis, Ulcer Psycho-Social History: No Pertinent History Female Reproductive Disorders: No Pertinent History - Past Surgical History Past Surgical History: Yes Neuro Surgical History: No Pertinent History Cardiac: No Pertinent History Respiratory: No Pertinent History Gastrointestinal: Cholecystectomy Genitourinary: No Pertinent History Musculoskeletal: Orthopedic Surgery Female Surgical History: Section, Hysterectomy Other Surgical History: times 2,stomach kassi times 2,rt arm ortho surgery - Social History Smoking Status: Never smoker Exposure to second hand smoke: Yes Drug Use: none Patient Lives Alone: No - Female History Hx Last Menstrual Period: post Hx Now: No - Nursing Vital Signs Nursing Vital Signs: Initial Vital Signs Temperature 97.2 F 08/10/21 11:00 Pulse Rate 92 H 08/10/21 11:00 Respiratory Rate 20 08/10/21 11:00 Blood Pressure 141/92 08/10/21 11:00 O2 Sat by Pulse Oximetry 99 08/10/21 11:00 Pain Scale Pain Intensity 6 - Physical Exam General Appearance: no apparent distress, alert Eyes, Ears, Nose, Throat Exam: normal ENT inspection, TMs normal, pharynx normal, moist mucous membranes Neck Exam: normal inspection, non-tender, supple, full range of motion Cardiovascular/Respiratory Exam: chest non-tender, normal breath sounds, regular rate/rhythm, heart sounds normal Abdominal Exam: non-tender, soft Back Exam: normal inspection, normal range of motion Shoulder Exam: normal inspection, limited ROM (Right shoulder with tenderness in the mid/upper third humerus. No elbow tenderness. Distal neurovascular well intact.) Elbow/Forearm Exam: normal inspection, non-tender, no evidence of injury, normal ROM Wrist Exam: normal inspection, non-tender, no evidence of injury, normal ROM Hand Exam: normal inspection, non-tender, no evidence of injury, normal ROM Neuro/Tendon Exam: normal sensation Mental Status Exam: alert, oriented x 3, cooperative Skin Exam: normal color SpO2 Interpretation: normal SpO2: 99 O2 Delivery: Room Air Ordered Tests: Active Orders 24 hr Category Date Time Status IV Insertion STAT Care 08/10/21 11:13 Active HUMERUS Stat Exams 08/10/21 Completed SHOULDER Stat Exams 08/10/21 Completed Medication Summary Discontinued Medications Generic Name Dose Route Start Last Admin Trade Name Juan PRN Reason Stop Dose Admin Morphine Sulfate 4 mg 08/10/21 11:22 08/10/21 11:25 Morphine Sulfate 4 Mg/Ml Injection IV 08/10/21 11:23 4 mg STAT ONE Administration Morphine Sulfate Confirm 08/10/21 11:23 Morphine Sulfate 4 Mg/Ml Injection Administered 08/10/21 11:24 Dose 4 mg .ROUTE .STK-MED ONE Ondansetron HCl 4 mg 08/10/21 11:22 08/10/21 11:25 Ondansetron Hcl 4 Mg/2 Ml Vial IV 08/10/21 11:23 4 mg STAT ONE Administration Ondansetron HCl Confirm 08/10/21 11:23 Ondansetron Hcl 4 Mg/2 Ml Vial Administered 08/10/21 11:24 Dose 4 mg .ROUTE .STK-MED ONE - Progress Progress: improved, re-examined Progress Note: 08/10/21 12:35 She is given morphine for symptomatic relief. X-rays showed right humeral head neck comminuted mildly displaced fracture. Placed in a sling. Outpatient orthopedic surgery follow-up. Patient does have a history of frequent falls, will avoid narcotic pain medications. No injury anywhere else needing any other work-up and is stable for discharge. Counseled pt/family regarding: diagnosis, need for follow-up, rad results - Departure Departure Disposition: Home Clinical Impression: Fracture of neck of humerus Qualifiers: Encounter type: initial encounter Fracture type: closed Laterality: right Qualified Code(s): S42.211A - Unspecified displaced fracture of surgical neck of right humerus, initial encounter for closed fracture Condition: Stable Critical Care Time: No Referrals: RASHID MCCOLLUM MD [Primary Care Provider] - Follow up/PCP as directed (1-2 days for reevaluation) LITZY SLATER MD [NON-STAFF PHY W/O PRIVILEGES] - Follow up/PCP as directed (Go to [facility] orthopedic clinic tomorrow morning for reevaluation.) Instructions: Shoulder Fracture (DC), Upper Arm Fracture Additional Instructions: Take Tylenol/ibuprofen as needed for pain. Use cane or walker for ambulation. Keep your right arm in the sling all the time. Follow-up with [facility] Ortho clinic tomorrow morning for reevaluation. Return to ER for worsening pain, numbness tingling weakness of right upper extremity. Prescriptions: Ibuprofen 600 mg PO Q6HPRN PRN 10 Days #20 tablet PRN Reason: Pain
--- NOTE | 2021-08-10 12:12 | XRAY ---
Indication: Pain following fall. Comparison: None 3 view right shoulder demonstrates minimally displaced comminuted humeral head/neck fracture. Incidental osteopenia and mild AC degenerative arthropathy. Remaining shoulder unremarkable.
--- NOTE | 2021-08-10 12:12 | XRAY ---
Indication: Pain following fall. Comparison: None 2 view right humerus demonstrates minimally displaced comminuted humeral head/neck fracture. Incidental osteopenia and mild AC degenerative arthropathy. Remaining humerus unremarkable.
[2021-08-14 16:57] VITALS: BP 139/65; PULSE 80; O2SAT 98
== END 2021-08-10 13:08 | disposition home or self-care (01) ==
LOC: ED 10:56
DX: S42.211A Unspecified displaced fracture of surgical neck of right humerus, initial encounter for closed fracture (principal); W18.30XA Fall on same level, unspecified, initial encounter; Y92.009 Unspecified place in unspecified non-institutional (private) residence as the place of occurrence of the external cause; E11.8 Type 2 diabetes mellitus with unspecified complications; Z79.84 Long term (current) use of oral hypoglycemic drugs; I10 Essential (primary) hypertension; E78.5 Hyperlipidemia, unspecified
CPT/HCPCS: 36000; 73030; 73060; 96374; 96375; 96376; 99284; J2270; J2405

== ENCOUNTER 2022-09-06 13:13 | Observation (INO) | payer OTHER ==
[2022-09-06] MEDS ORDERED: MORPHINE SULFATE 4 MG INJ IV ONE (13:35)
[2022-09-06] MEDS ORDERED: BABY ASPIRIN 81 MG CHEW PO ONE (13:35)
[2022-09-06] MEDS ORDERED: Zofran 4 MG/2 ML VIAL IV ONE (13:35)
--- NOTE | 2022-09-06 13:43 | ERPHSYRPT ---
- History of Present Illness Time Seen by Provider: 09/06/22 13:18 Historian: patient Exam Limitations: no limitations Patient Subjective Stated Complaint: Pt c/o of pain that shoots down her left arm and sharp pain in the right side of her head Triage Nursing Assessment: Pt brought to the ER by her , hypertensive, rates pain as 8/10, couldn't sleep last night due to the pain in her arm and head, pulses normal, skin n/w/d, no edema noted, no difficulties breathing Physician History: 61 years old female with history of diabetes mellitus presented in the ER with chief complaint of left arm pain off and on since last night, moderate to severe sharp lasting for few minutes and improves on its own without any significant aggravating or relieving factors. Patient also reports having chest tightness and pressure sensation with no aggravating or relieving factors and no difficulty breathing. Patient also having right-sided jaw and denominational area pain along with neck pain. No history of coronary artery disease or recent cardiac work-up . Denies fever chills or cough. Patient though is very anxious . Timing/Duration: yesterday, intermittent, gradual onset, worse Activities at Onset: rest Quality: sharpness Location: shoulder, other Chest Pain Radiation: jaw, neck, arm Severity of Pain-Max: moderate Severity of Pain-Current: moderate Modifying Factors: Improves With: nothing Associated Symptoms: denies symptoms Prior Chest Pain/Cardiac Workup: no prior chest pain, no prior cardiac workup Nitro Today/Relief: no nitro taken today Aspirin Treatment Today: no aspirin today Allergies/Adverse Reactions: glycopyrrolate [From Robinul] Allergy (Verified 09/06/22 16:11) headache and increased b/p Home Medications: Levothyroxine Sodium [Synthroid] 75 mcg PO DAILY 09/22/12 [History] Empagliflozin [Jardiance] 10 mg PO DAILY 01/04/19 [History] Dulaglutide [Trulicity] 3 mg SQ WEEKLY 08/10/21 [History] Primidone 50 MG [Mysoline 50Mg] 1 ea PO TID 08/10/21 [History] Celecoxib 200 mg PO BID 09/06/22 [History] Cephalexin Mh 250 mg [Keflex 250 mg] 250 mg PO DAILY 09/06/22 [History] Liraglutide [Victoza 2-Juan Pablo] 1.8 mg SQ DAILY 09/06/22 [History] Hx Tetanus, Diphtheria Vaccination/Date Given: No Hx Influenza Vaccination/Date Given: Yes Hx Pneumococcal Vaccination/Date Given: Yes Travel Risk - International Travel Have you traveled outside of the country in past 3 weeks: No - Coronavirus Screening Are you exhibiting any of the following symptoms?: No Close contact with a COVID-19 positive Pt in past 14-21 Days: No - Vaccine Status Have you recieved a Covid-19 vaccination: Yes Outreach Director: Moderna - Vaccination Dates Date of 2cond Vaccination (if applicable): december 2020 - Review of Systems Constitutional: No Symptoms Eyes: No Symptoms Ears, Nose, & Throat: No Symptoms Respiratory: No Symptoms Cardiac: Chest Pain Abdominal/Gastrointestinal: No Symptoms Genitourinary Symptoms: No Symptoms Musculoskeletal: Myalgias Skin: No Symptoms Neurological: Headache Psychological: No Symptoms Endocrine: No Symptoms Hematologic/Lymphatic: No Symptoms - Past Medical History Pertinent Past Medical History: Yes Neurological History: Other ENT History: No Pertinent History Cardiac History: High Cholesterol Respiratory History: Asthma Endocrine Medical History: Diabetes Type II, Hypothyroidism Musculoskeletal History: Fractures GI Medical History: Gallbladder Disease, Pancreatitis, Ulcer Psycho-Social History: No Pertinent History Female Reproductive Disorders: No Pertinent History Other Medical History: Tremors (B hands), R Wrist Fx (childhood), R humerus fracture), R TKA (~2016), Gastric bypass surgery (1981), Cervical repair (C5-7, 2020) - Past Surgical History Past Surgical History: Yes Neuro Surgical History: No Pertinent History Cardiac: No Pertinent History Respiratory: No Pertinent History Gastrointestinal: Cholecystectomy Genitourinary: No Pertinent History Musculoskeletal: Orthopedic Surgery Female Surgical History: Section, Hysterectomy Other Surgical History: times 2,stomach kassi times 2,rt arm ortho surgery - Social History Smoking Status: Never smoker Exposure to second hand smoke: Yes Drug Use: none Patient Lives Alone: No - Nursing Vital Signs Nursing Vital Signs: Initial Vital Signs Pulse Rate 86 09/06/22 13:26 Respiratory Rate 16 09/06/22 13:26 Blood Pressure 167/102 09/06/22 13:26 O2 Sat by Pulse Oximetry 100 09/06/22 13:26 Pain Scale Pain Intensity 4 - Physical Exam General Appearance: no apparent distress, alert, anxiety Eye Exam: PERRL/EOMI Ears, Nose, Throat Exam: normal ENT inspection, TMs normal, pharynx normal, moist mucous membranes Neck Exam: normal inspection, non-tender, supple, full range of motion, No meningismus Respiratory Exam: normal breath sounds, lungs clear, No chest tenderness Cardiovascular Exam: regular rate/rhythm, normal heart sounds Gastrointestinal/Abdomen Exam: soft, normal bowel sounds, No tenderness Back Exam: normal inspection Extremity Exam: normal inspection, normal range of motion Neurologic Exam: alert, oriented x 3, cooperative, home supervisor II-XII nml as tested, nml cerebellar function, nml station & gait, sensation nml, No normal mood/affect, No motor deficits Skin Exam: normal color SpO2 Interpretation: normal SpO2: 100 O2 Delivery: Room Air - Course EKG Interpreted by Me: RATE (83), Sinus Rhythm, Right [place] Deviation, NORMAL INTERVALS, Non-specific ST Changes Ordered Tests: Active Orders 24 hr Category Date Time Status Boring Mill Operator For Metal STAT Care 09/06/22 13:35 Completed EKG-ER Only STAT Care 09/06/22 13:35 Completed IV Insertion STAT Care 09/06/22 13:35 Completed CHEST 1 VIEW (PORTABLE) Stat Exams 09/06/22 13:35 Completed CBC W DIFF Stat Lab 09/06/22 13:37 Completed CK-Creatinine Phosphokinase Stat Lab 09/06/22 13:37 Completed CMP Stat Lab 09/06/22 13:37 Completed D-DIMER QUANTITATIVE Stat Lab 09/06/22 13:37 Completed NT PRO BNP Stat Lab 09/06/22 13:37 Completed POCT GLUCOSE Stat Lab 09/06/22 15:02 Completed TROPONIN Q4H Lab 09/06/22 13:37 Completed TROPONIN Q4H Lab 09/06/22 17:45 Ordered TROPONIN Q4H Lab 09/06/22 21:45 Ordered Medication Summary Generic Name Dose Route Start Last Admin Trade Name Freq PRN Reason Stop Dose Admin Acetaminophen 650 mg 09/06/22 16:08 Acetaminophen 325 Mg Tablet PO 10/06/22 16:07 Q4H PRN PRN PAIN AND/OR FEVER Cephalexin HCl 250 mg 09/06/22 22:00 Cephalexin Mh 250 Mg Capsule PO 10/06/22 21:59 HS EVELYNE Insulin Human Lispro 0 unit 09/06/22 16:39 Insulin Lispro 1 Unit SQ 10/06/22 16:38 UD PRN HYPERGLYCEMIA Levothyroxine Sodium 75 mcg 09/07/22 10:00 Levothyroxine Sodium 75 Mcg Tablet PO 10/07/22 09:59 DAILY EVELYNE Lorazepam 1 mg 09/06/22 16:38 Lorazepam 2 Mg/1 Ml 2 Mg Vial IV 10/06/22 16:37 PRN PRN CIWA SCORE Morphine Sulfate 2 mg 09/06/22 16:08 Morphine Sulfate 2 Mg/Ml Inj IV 09/11/22 16:07 Q4H PRN PRN PAIN Ondansetron HCl 4 mg 09/06/22 16:08 Ondansetron Hcl 4 Mg/2 Ml Vial IV 10/06/22 16:07 Q6H PRN PRN NAUSEA/VOMITING Pantoprazole Sodium 40 mg 09/07/22 10:00 Pantoprazole 40 Mg Vial IV 10/07/22 09:59 Q24H10 EVELYNE Primidone 50 mg 09/06/22 22:00 Primidone 50 Mg Tablet PO 10/06/22 21:59 TID EVELYNE Discontinued Medications Generic Name Dose Route Start Last Admin Trade Name Freq PRN Reason Stop Dose Admin Albuterol/Ipratropium 3 ml 09/06/22 16:08 Ipratropium/Albuterol Sulfate 3 Ml Ampul.Neb IH 10/06/22 16:07 Q4HPRN PRN SHORTNESS OF BREATH/WHEEZING Aspirin 324 mg 09/06/22 13:35 09/06/22 13:47 Aspirin 81 Mg Tab.Chew PO 09/06/22 13:36 324 mg STAT ONE Administration Aspirin Confirm 09/06/22 13:45 Aspirin 81 Mg Tab.Chew Administered 09/06/22 13:46 Dose 324 mg .ROUTE .STK-MED ONE Morphine Sulfate 4 mg 09/06/22 13:35 09/06/22 13:46 Morphine Sulfate 4 Mg/Ml Injection IV 09/06/22 13:36 4 mg STAT ONE Administration Morphine Sulfate Confirm 09/06/22 13:45 Morphine Sulfate 4 Mg/Ml Injection Administered 09/06/22 13:46 Dose 4 mg .ROUTE .STK-MED ONE Ondansetron HCl 4 mg 09/06/22 13:35 09/06/22 13:46 Ondansetron Hcl 4 Mg/2 Ml Vial IV 09/06/22 13:36 4 mg STAT ONE Administration Ondansetron HCl Confirm 09/06/22 13:44 Ondansetron Hcl 4 Mg/2 Ml Vial Administered 09/06/22 13:45 Dose 4 mg .ROUTE .K-MED ONE Lab/Rad Data: Laboratory Result Diagrams 09/06/22 13:37 09/06/22 13:37 Laboratory Results 09/06/22 09/06/22 09/06/22 Range/Units 15:02 14:59 13:37 WBC (4.0-10.5) x10^3/uL RBC (4.1-5.4) x10^6/uL Hgb (12.0-16.0) g/dL Hct (35-47) % MCV (78-100) fL MCH (26-32) pg MCHC (32-36) g/dL RDW (11.5-14.0) % Plt Count (150-450) x10^3/uL MPV (7.5-11.0) fL Gran % (36.0-66.0) % Immature Gran % (Auto) (0.00-0.4) % Nucleat RBC Rel Count (0.00-0.1) % Eos # (Auto) (0-0.5) x10^3/uL Immature Gran # (Auto) (0.00-0.03) x10^3u/L Absolute Lymphs (auto) (1.0-4.6) x10^3/uL Absolute Monos (auto) (0.0-1.3) x10^3/uL Absolute Nucleated RBC (0.00-0.01) x10^3u/L Lymphocytes % (24.0-44.0) % Monocytes % (0.0-12.0) % Eosinophils % (0.00-5.0) % Basophils % (0.0-0.4) % Absolute Granulocytes (1.4-6.9) x10^3/uL Basophils # (0-0.4) x10^3/uL D-Dimer (0.0-0.50) mg/L Sodium (137-145) mmol/L Potassium (3.5-5.1) mmol/L Chloride (98-107) mmol/L Carbon Dioxide (22-30) mmol/L Anion Gap (5-15) MEQ/L BUN (7-17) mg/dL Creatinine (0.52-1.04) mg/dL Estimated GFR ML/MIN Glucose (74-106) mg/dL POC Glucometer 80 (74 to 106) mg/dL Calcium (8.4-10.2) mg/dL Total Bilirubin (0.2-1.3) mg/dL AST (14-36) U/L ALT (0-35) U/L Alkaline Phosphatase (38-126) U/L Creatine Kinase (30-135) U/L Troponin I < 0.012 (0.000-0.034) ng/mL NT-Pro-B Natriuret Pep (0-900) pg/mL Serum Total Protein (6.3-8.2) g/dL Albumin (3.5-5.0) g/dL Influenza Type A Ag NEGATIVE (NEGATIVE) Influenza Type B Ag NEGATIVE (NEGATIVE) RSV (PCR) NEGATIVE (Negative) SARS-CoV-2 (PCR) NEGATIVE (NEGATIVE) 09/06/22 09/06/22 09/06/22 Range/Units 13:37 13:37 13:37 WBC 3.0 L (4.0-10.5) x10^3/uL RBC 4.19 (4.1-5.4) x10^6/uL Hgb 12.1 (12.0-16.0) g/dL Hct 38.8 (35-47) % MCV 92.6 (78-100) fL MCH 28.9 (26-32) pg MCHC 31.2 L (32-36) g/dL RDW 14.7 H (11.5-14.0) % Plt Count 235 (150-450) x10^3/uL MPV 9.9 (7.5-11.0) fL Gran % 51.1 (36.0-66.0) % Immature Gran % (Auto) 0.3 (0.00-0.4) % Nucleat RBC Rel Count 0.0 (0.00-0.1) % Eos # (Auto) 0.08 (0-0.5) x10^3/uL Immature Gran # (Auto) 0.01 (0.00-0.03) x10^3u/L Absolute Lymphs (auto) 0.70 L (1.0-4.6) x10^3/uL Absolute Monos (auto) 0.65 (0.0-1.3) x10^3/uL Absolute Nucleated RBC 0.00 (0.00-0.01) x10^3u/L Lymphocytes % 23.2 L (24.0-44.0) % Monocytes % 21.5 H (0.0-12.0) % Eosinophils % 2.6 (0.00-5.0) % Basophils % 1.3 (0.0-0.4) % Absolute Granulocytes 1.54 (1.4-6.9) x10^3/uL Basophils # 0.04 (0-0.4) x10^3/uL D-Dimer 0.39 (0.0-0.50) mg/L Sodium 132 L (137-145) mmol/L Potassium 4.5 (3.5-5.1) mmol/L Chloride 96 L (98-107) mmol/L Carbon Dioxide 26 (22-30) mmol/L Anion Gap 14.5 (5-15) MEQ/L BUN 9 (7-17) mg/dL Creatinine 0.54 (0.52-1.04) mg/dL Estimated GFR > 60.0 ML/MIN Glucose 94 (74-106) mg/dL POC Glucometer (74 to 106) mg/dL Calcium 9.5 (8.4-10.2) mg/dL Total Bilirubin 1.60 H (0.2-1.3) mg/dL AST 73 H (14-36) U/L ALT 37 H (0-35) U/L Alkaline Phosphatase 80 (38-126) U/L Creatine Kinase 32 (30-135) U/L Troponin I (0.000-0.034) ng/mL NT-Pro-B Natriuret Pep 1860 H (0-900) pg/mL Serum Total Protein 7.3 (6.3-8.2) g/dL Albumin 4.2 (3.5-5.0) g/dL Influenza Type A Ag (NEGATIVE) Influenza Type B Ag (NEGATIVE) RSV (PCR) (Negative) SARS-CoV-2 (PCR) (NEGATIVE) - Progress Progress: improved Air Movement: good Progress Note: 09/06/22 15:60 Years old is evaluated for left arm pain and some chest pressure. The EKG did not show any ST elevation and negative initial troponins. Chest x-ray negative. Patient has elevation in BNP and no history of congestive heart failure. She is not in any distress or having any shortness of breath. D-dimers are negative. Discussed with Dr. Chandler and patient is being admitted for observation to trend cardiac enzymes as she has multiple risk factor for CAD and does not have any work-up done in the recent past. Blood Culture(s) Obtained: No Antibiotics given: No Discussed with : Theron Will see patient in: hospital (observation) Counseled pt/family regarding: lab results, diagnosis, rad results - Departure Departure Disposition: Observation Clinical Impression: Chest pain, rule out acute myocardial infarction Condition: Stable Critical Care Time: No
[2022-09-06] MEDS ORDERED: Zofran 4 MG/2 ML VIAL ONE (13:44)
[2022-09-06] MEDS ORDERED: MORPHINE SULFATE 4 MG INJ ONE (13:45)
[2022-09-06] MEDS ORDERED: BABY ASPIRIN 81 MG CHEW ONE (13:45)
--- NOTE | 2022-09-06 13:54 | XRAY ---
Indication: Left chest pain. Comparison: June 28, 2020 Portable chest again demonstrates normal heart and lungs. Bony thorax intact again with mild osteopenia, degenerative changes, and old right humeral neck fracture. New lower cervical fusion hardware. Stable epigastric suture material/surgical clips. Impression: Continue nonacute chest with chronic features.
[2022-09-06 14:18] LABS: Absolute Neutrophil Ct (ANC) 1.54 x10^3/uL (1.4-6.9); Basophil (Absolute #) 0.04 x10^3/uL (0-0.4); Eosinophil % 2.6 % (0.00-5.0); Eosinophil (Absolute #) 0.08 x10^3/uL (0-0.5); Hematocrit 38.8 % (35-47); Hemoglobin 12.1 g/dL (12.0-16.0); Lymphocytes % 23.2 % (24.0-44.0); Mean Cell Volume 92.6 fL (78-100); Mean Corpuscular Hemoglobin 28.9 pg (26-32); Mean Corpuscular Hgb Concent. 31.2 g/dL (32-36); Mean Platelet Volume 9.9 fL (7.5-11.0); Monocyte (Absolute #) 0.65 x10^3/uL (0.0-1.3); Monocytes % 21.5 % (0.0-12.0); Neutrophil % 51.1 % (36.0-66.0); Platelet Count 235 x10^3/uL (150-450); Red Blood Count 4.19 x10^6/uL (4.1-5.4); Red Cell Distribution Width 14.7 % (11.5-14.0)
[2022-09-06 14:45] LABS: ALBUMIN 4.2 g/dL (3.5-5.0); ALKALINE PHOSPHATASE 80 U/L (38-126); BLOOD UREA NITROGEN 9 mg/dL (7-17); CHLORIDE 96 mmol/L (98-107); CK-Creatinine Phosphokinase 32 U/L (30-135); Calcium 9.5 mg/dL (8.4-10.2); Carbon Dioxide 26 mmol/L (22-30); Creatinine 1 0.54 mg/dL (0.52-1.04); EST GLOMERULAR FILTRATION RATE > 60.0 ML/MIN; Glucose 94 mg/dL (74-106); NT PRO BNP 1860 pg/mL (0-900); SGOT/AST 73 U/L (14-36); SGPT/ALT 37 U/L (0-35); SODIUM 132 mmol/L (137-145); Total Protein 7.3 g/dL (6.3-8.2)
[2022-09-06 14:59] LABS: Potassium 4.5 mmol/L (3.5-5.1)
[2022-09-06 15:00] LABS: ANION GAP 14.5 MEQ/L (5-15)
[2022-09-06 15:35] LABS: INFLUENZA A NEGATIVE (NEGATIVE); INFLUENZA B NEGATIVE (NEGATIVE); RESPIRATORY SYNCTIAL VIRUS NEGATIVE (Negative); SARS-CoV-2 Xpert Express NEGATIVE (NEGATIVE)
[2022-09-06] MEDS ORDERED: DUONEB 0.5-3 MG/3 ml Neb IH PRN (16:08)
[2022-09-06] MEDS ORDERED: MORPHINE SULFATE 2 MG INJ IV PRN (16:08)
[2022-09-06] MEDS ORDERED: Zofran 4 MG/2 ML VIAL IV PRN (16:08)
[2022-09-06] MEDS ORDERED: TYLENOL 325 MG PO PRN (16:08)
[2022-09-06] MEDS ORDERED: Ativan 2 MG/1 ML VIAL IV PRN ×3 (16:38→23:58)
[2022-09-06] MEDS ORDERED: HUMALOG SQ PRN (16:39)
[2022-09-06] MEDS: MYSOLINE 50MG PO SCH (20:02)
[2022-09-06] MEDS ORDERED: KEFLEX 250 MG PO SCH (22:00)
[2022-09-06] MEDS ORDERED: Ativan 1 MG PO PRN (23:20)
[2022-09-07 04:55] LABS: Basophil (Absolute #) 0.04 x10^3/uL (0-0.4); Eosinophil % 4.4 % (0.00-5.0); Eosinophil (Absolute #) 0.16 x10^3/uL (0-0.5); Hematocrit 35.2 % (35-47); Hemoglobin 10.8 g/dL (12.0-16.0); Lymphocyte (Absolute #) 1.04 x10^3/uL (1.0-4.6); Lymphocytes % 28.3 % (24.0-44.0); Mean Cell Volume 95.1 fL (78-100); Mean Corpuscular Hemoglobin 29.2 pg (26-32); Mean Corpuscular Hgb Concent. 30.7 g/dL (32-36); Mean Platelet Volume 9.4 fL (7.5-11.0); Monocyte (Absolute #) 0.62 x10^3/uL (0.0-1.3); Monocytes % 16.9 % (0.0-12.0); Platelet Count 173 x10^3/uL (150-450); Red Cell Distribution Width 14.6 % (11.5-14.0); White Blood Count 3.7 x10^3/uL (4.0-10.5)
[2022-09-07 05:26] LABS: ALBUMIN 3.7 g/dL (3.5-5.0); ALKALINE PHOSPHATASE 78 U/L (38-126); ANION GAP 11.5 MEQ/L (5-15); BLOOD UREA NITROGEN 10 mg/dL (7-17); CHLORIDE 97 mmol/L (98-107); Calcium 8.8 mg/dL (8.4-10.2); Carbon Dioxide 27 mmol/L (22-30); Creatinine 1 0.52 mg/dL (0.52-1.04); EST GLOMERULAR FILTRATION RATE > 60.0 ML/MIN; Glucose 102 mg/dL (74-106); Potassium 3.7 mmol/L (3.5-5.1); SGOT/AST 56 U/L (14-36); SGPT/ALT 32 U/L (0-35); SODIUM 132 mmol/L (137-145); Total Protein 6.7 g/dL (6.3-8.2)
[2022-09-07] MEDS: MYSOLINE 50MG PO SCH (08:15)
--- NOTE | 2022-09-07 08:42 | PCM.HP ---
History of Present Illness - Chief Complaint Chief Complaint: Chest pain rule out acute HI History of Present Illness: is a 61 year old female who presented to the ER with complaints of pain in her chest/left arm. she has some chronic GI issues and a history of alcohol abuse, she required IV ativan last night per [facility] protocol. admits to 4-5 drinks a day and hadn't drank on the day prior to arrival. her chest pain is currently resolved, she has some pain in her head but she is feeling sleepy from the ativan given. - Review of Systems Constitutional: No Fever, No Chills Respiratory: No Cough, No Short Of Breath Cardiac: Chest Pain Abdominal/Gastrointestinal: Abdominal Pain, Constipation Genitourinary Symptoms: No Dysuria Psychological: Alcohol Abuse Endocrine: No Symptoms Medications & Allergies Home Medications: Home Medication List Levothyroxine Sodium [Synthroid] 75 mcg PO DAILY 09/22/12 [History Confirmed 09/06/22] Empagliflozin [Jardiance] 10 mg PO DAILY 01/04/19 [History Confirmed 09/06/22] Dulaglutide [Trulicity] 3 mg SQ WEEKLY 08/10/21 [History Confirmed 09/06/22] Ibuprofen 600 mg PO Q6HPRN PRN 10 Days #20 tablet 08/10/21 [Rx Confirmed 09/06/22] Primidone 50 MG [Mysoline 50Mg] 1 ea PO TID 08/10/21 [History Confirmed 09/06/22] Celecoxib 200 mg PO BID 09/06/22 [History Confirmed 09/06/22] Cephalexin Mh 250 mg [Keflex 250 mg] 250 mg PO DAILY 09/06/22 [History Confirmed 09/06/22] Liraglutide [Victoza 2-Juan Pablo] 1.8 mg SQ DAILY 09/06/22 [History Confirmed 09/06/22] Allergies/Adverse Reactions: Allergies Allergy/AdvReac Type Severity Reaction Status Date / Time glycopyrrolate [From Ruel] Allergy headache Verified 09/06/22 16:11 and increased b/p - Past Medical History Past Medical History: Yes Neurological History: Other ENT History: No Pertinent History Cardiac History: High Cholesterol Respiratory History: Asthma Endocrine Medical History: Diabetes Type II, Hypothyroidism Musculoskelatal History: Fractures GI Medical History: Gallbladder Disease, Pancreatitis, Ulcer History: No Pertinent History Pyscho-Social History: No Pertinent History Reproductive Disorders: No Pertinent History Comment: Tremors (B hands), R Wrist Fx (childhood), R humerus fracture), R TKA (~2017), Gastric bypass surgery (1981), Cervical repair (C5-7, 2020) - Past Surgical History Past Surgical History: Yes Neuro Surgical History: No Pertinent History Cardiac History: No Pertinent History Respiratory Surgery: No Pertinent History GI Surgical History: Cholecystectomy Genitourinary Surgical Hx: No Pertinent History Musculskeletal Surgical Hx: Orthopedic Surgery Female Surgical History: Section, Hysterectomy Other Surgical History: times 2,stomach kassi times 2,rt arm ortho surgery - Social History Smoking Status: Never smoker Exposure to second hand smoke: Yes Alcohol: Daily Drug Use: none - Physical Exam Vital Signs: Vital Signs - 24 hr Temp Pulse Resp BP BP Pulse Ox 09/07/22 07:04 98.7 F 77 16 141/67 96 09/07/22 04:00 97.1 F 74 18 120/62 98 09/07/22 00:02 78 20 138/63 09/06/22 23:36 96.9 F 70 17 138/63 98 09/06/22 19:35 17 143/73 99 09/06/22 17:30 100 09/06/22 15:58 97.1 F 83 16 175/74 100 09/06/22 15:02 77 20 161/97 100 09/06/22 14:13 81 161/97 100 09/06/22 13:26 86 16 167/102 100 General Appearance: no apparent distress, obese Neurologic Exam: alert, oriented x 3, cooperative Respiratory Exam: normal breath sounds, lungs clear, No respiratory distress Cardiovascular Exam: regular rate/rhythm, normal heart sounds, normal peripheral pulses Gastrointestinal/Abdomen Exam: soft, normal bowel sounds, No tenderness, No mass Extremity Exam: normal inspection, normal range of motion, pelvis stable Skin Exam: normal color, warm, dry, No rash Results - Labs Lab/Micro Results: Lab Results-Last 24 Hours 09/06/22 09/06/22 09/06/22 Range/Units 13:37 13:37 13:37 WBC 3.0 L (4.0-10.5) x10^3/uL RBC 4.19 (4.1-5.4) x10^6/uL Hgb 12.1 (12.0-16.0) g/dL Hct 38.8 (35-47) % MCV 92.6 (78-100) fL MCH 28.9 (26-32) pg MCHC 31.2 L (32-36) g/dL RDW 14.7 H (11.5-14.0) % Plt Count 235 (150-450) x10^3/uL MPV 9.9 (7.5-11.0) fL Gran % 51.1 (36.0-66.0) % Immature Gran % (Auto) 0.3 (0.00-0.4) % Nucleat RBC Rel Count 0.0 (0.00-0.1) % Eos # (Auto) 0.08 (0-0.5) x10^3/uL Immature Gran # (Auto) 0.01 (0.00-0.03) x10^3u/L Absolute Lymphs (auto) 0.70 L (1.0-4.6) x10^3/uL Absolute Monos (auto) 0.65 (0.0-1.3) x10^3/uL Absolute Nucleated RBC 0.00 (0.00-0.01) x10^3u/L Lymphocytes % 23.2 L (24.0-44.0) % Monocytes % 21.5 H (0.0-12.0) % Eosinophils % 2.6 (0.00-5.0) % Basophils % 1.3 (0.0-0.4) % Absolute Granulocytes 1.54 (1.4-6.9) x10^3/uL Basophils # 0.04 (0-0.4) x10^3/uL D-Dimer 0.39 (0.0-0.50) mg/L Sodium 132 L (137-145) mmol/L Potassium 4.5 (3.5-5.1) mmol/L Chloride 96 L (98-107) mmol/L Carbon Dioxide 26 (22-30) mmol/L Anion Gap 14.5 (5-15) MEQ/L BUN 9 (7-17) mg/dL Creatinine 0.54 (0.52-1.04) mg/dL Estimated GFR > 60.0 ML/MIN Glucose 94 (74-106) mg/dL POC Glucometer (74 to 106) mg/dL Hemoglobin A1c (4.5-6.0) % Calcium 9.5 (8.4-10.2) mg/dL Total Bilirubin 1.60 H (0.2-1.3) mg/dL AST 73 H (14-36) U/L ALT 37 H (0-35) U/L Alkaline Phosphatase 80 (38-126) U/L Creatine Kinase 32 (30-135) U/L Troponin I (0.000-0.034) ng/mL NT-Pro-B Natriuret Pep 1860 H (0-900) pg/mL Serum Total Protein 7.3 (6.3-8.2) g/dL Albumin 4.2 (3.5-5.0) g/dL Influenza Type A Ag (NEGATIVE) Influenza Type B Ag (NEGATIVE) RSV (PCR) (Negative) SARS-CoV-2 (PCR) (NEGATIVE) 09/06/22 09/06/22 09/06/22 Range/Units 13:37 14:59 15:02 WBC (4.0-10.5) x10^3/uL RBC (4.1-5.4) x10^6/uL Hgb (12.0-16.0) g/dL Hct (35-47) % MCV (78-100) fL MCH (26-32) pg MCHC (32-36) g/dL RDW (11.5-14.0) % Plt Count (150-450) x10^3/uL MPV (7.5-11.0) fL Gran % (36.0-66.0) % Immature Gran % (Auto) (0.00-0.4) % Nucleat RBC Rel Count (0.00-0.1) % Eos # (Auto) (0-0.5) x10^3/uL Immature Gran # (Auto) (0.00-0.03) x10^3u/L Absolute Lymphs (auto) (1.0-4.6) x10^3/uL Absolute Monos (auto) (0.0-1.3) x10^3/uL Absolute Nucleated RBC (0.00-0.01) x10^3u/L Lymphocytes % (24.0-44.0) % Monocytes % (0.0-12.0) % Eosinophils % (0.00-5.0) % Basophils % (0.0-0.4) % Absolute Granulocytes (1.4-6.9) x10^3/uL Basophils # (0-0.4) x10^3/uL D-Dimer (0.0-0.50) mg/L Sodium (137-145) mmol/L Potassium (3.5-5.1) mmol/L Chloride (98-107) mmol/L Carbon Dioxide (22-30) mmol/L Anion Gap (5-15) MEQ/L BUN (7-17) mg/dL Creatinine (0.52-1.04) mg/dL Estimated GFR ML/MIN Glucose (74-106) mg/dL POC Glucometer 80 (74 to 106) mg/dL Hemoglobin A1c (4.5-6.0) % Calcium (8.4-10.2) mg/dL Total Bilirubin (0.2-1.3) mg/dL AST (14-36) U/L ALT (0-35) U/L Alkaline Phosphatase (38-126) U/L Creatine Kinase (30-135) U/L Troponin I < 0.012 (0.000-0.034) ng/mL NT-Pro-B Natriuret Pep (0-900) pg/mL Serum Total Protein (6.3-8.2) g/dL Albumin (3.5-5.0) g/dL Influenza Type A Ag NEGATIVE (NEGATIVE) Influenza Type B Ag NEGATIVE (NEGATIVE) RSV (PCR) NEGATIVE (Negative) SARS-CoV-2 (PCR) NEGATIVE (NEGATIVE) 09/06/22 09/06/22 09/06/22 Range/Units 16:30 16:34 17:40 WBC (4.0-10.5) x10^3/uL RBC (4.1-5.4) x10^6/uL Hgb (12.0-16.0) g/dL Hct (35-47) % MCV (78-100) fL MCH (26-32) pg MCHC (32-36) g/dL RDW (11.5-14.0) % Plt Count (150-450) x10^3/uL MPV (7.5-11.0) fL Gran % (36.0-66.0) % Immature Gran % (Auto) (0.00-0.4) % Nucleat RBC Rel Count (0.00-0.1) % Eos # (Auto) (0-0.5) x10^3/uL Immature Gran # (Auto) (0.00-0.03) x10^3u/L Absolute Lymphs (auto) (1.0-4.6) x10^3/uL Absolute Monos (auto) (0.0-1.3) x10^3/uL Absolute Nucleated RBC (0.00-0.01) x10^3u/L Lymphocytes % (24.0-44.0) % Monocytes % (0.0-12.0) % Eosinophils % (0.00-5.0) % Basophils % (0.0-0.4) % Absolute Granulocytes (1.4-6.9) x10^3/uL Basophils # (0-0.4) x10^3/uL D-Dimer (0.0-0.50) mg/L Sodium (137-145) mmol/L Potassium (3.5-5.1) mmol/L Chloride (98-107) mmol/L Carbon Dioxide (22-30) mmol/L Anion Gap (5-15) MEQ/L BUN (7-17) mg/dL Creatinine (0.52-1.04) mg/dL Estimated GFR ML/MIN Glucose (74-106) mg/dL POC Glucometer 108 H (74 to 106) mg/dL Hemoglobin A1c 4.69 (4.5-6.0) % Calcium (8.4-10.2) mg/dL Total Bilirubin (0.2-1.3) mg/dL AST (14-36) U/L ALT (0-35) U/L Alkaline Phosphatase (38-126) U/L Creatine Kinase (30-135) U/L Troponin I 0.013 (0.000-0.034) ng/mL NT-Pro-B Natriuret Pep (0-900) pg/mL Serum Total Protein (6.3-8.2) g/dL Albumin (3.5-5.0) g/dL Influenza Type A Ag (NEGATIVE) Influenza Type B Ag (NEGATIVE) RSV (PCR) (Negative) SARS-CoV-2 (PCR) (NEGATIVE) 09/06/22 09/06/22 09/07/22 Range/Units 20:27 21:31 04:52 WBC 3.7 L (4.0-10.5) x10^3/uL RBC 3.70 L (4.1-5.4) x10^6/uL Hgb 10.8 L (12.0-16.0) g/dL Hct 35.2 (35-47) % MCV 95.1 (78-100) fL MCH 29.2 (26-32) pg MCHC 30.7 L (32-36) g/dL RDW 14.6 H (11.5-14.0) % Plt Count 173 (150-450) x10^3/uL MPV 9.4 (7.5-11.0) fL Gran % 49.0 (36.0-66.0) % Immature Gran % (Auto) 0.3 (0.00-0.4) % Nucleat RBC Rel Count 0.0 (0.00-0.1) % Eos # (Auto) 0.16 (0-0.5) x10^3/uL Immature Gran # (Auto) 0.01 (0.00-0.03) x10^3u/L Absolute Lymphs (auto) 1.04 (1.0-4.6) x10^3/uL Absolute Monos (auto) 0.62 (0.0-1.3) x10^3/uL Absolute Nucleated RBC 0.00 (0.00-0.01) x10^3u/L Lymphocytes % 28.3 (24.0-44.0) % Monocytes % 16.9 H (0.0-12.0) % Eosinophils % 4.4 (0.00-5.0) % Basophils % 1.1 (0.0-0.4) % Absolute Granulocytes 1.80 (1.4-6.9) x10^3/uL Basophils # 0.04 (0-0.4) x10^3/uL D-Dimer (0.0-0.50) mg/L Sodium (137-145) mmol/L Potassium (3.5-5.1) mmol/L Chloride (98-107) mmol/L Carbon Dioxide (22-30) mmol/L Anion Gap (5-15) MEQ/L BUN (7-17) mg/dL Creatinine (0.52-1.04) mg/dL Estimated GFR ML/MIN Glucose (74-106) mg/dL POC Glucometer 82 (74 to 106) mg/dL Hemoglobin A1c (4.5-6.0) % Calcium (8.4-10.2) mg/dL Total Bilirubin (0.2-1.3) mg/dL AST (14-36) U/L ALT (0-35) U/L Alkaline Phosphatase (38-126) U/L Creatine Kinase (30-135) U/L Troponin I < 0.012 (0.000-0.034) ng/mL NT-Pro-B Natriuret Pep (0-900) pg/mL Serum Total Protein (6.3-8.2) g/dL Albumin (3.5-5.0) g/dL Influenza Type A Ag (NEGATIVE) Influenza Type B Ag (NEGATIVE) RSV (PCR) (Negative) SARS-CoV-2 (PCR) (NEGATIVE) 09/07/22 09/07/22 Range/Units 04:52 06:56 WBC (4.0-10.5) x10^3/uL RBC (4.1-5.4) x10^6/uL Hgb (12.0-16.0) g/dL Hct (35-47) % MCV (78-100) fL MCH (26-32) pg MCHC (32-36) g/dL RDW (11.5-14.0) % Plt Count (150-450) x10^3/uL MPV (7.5-11.0) fL Gran % (36.0-66.0) % Immature Gran % (Auto) (0.00-0.4) % Nucleat RBC Rel Count (0.00-0.1) % Eos # (Auto) (0-0.5) x10^3/uL Immature Gran # (Auto) (0.00-0.03) x10^3u/L Absolute Lymphs (auto) (1.0-4.6) x10^3/uL Absolute Monos (auto) (0.0-1.3) x10^3/uL Absolute Nucleated RBC (0.00-0.01) x10^3u/L Lymphocytes % (24.0-44.0) % Monocytes % (0.0-12.0) % Eosinophils % (0.00-5.0) % Basophils % (0.0-0.4) % Absolute Granulocytes (1.4-6.9) x10^3/uL Basophils # (0-0.4) x10^3/uL D-Dimer (0.0-0.50) mg/L Sodium 132 L (137-145) mmol/L Potassium 3.7 (3.5-5.1) mmol/L Chloride 97 L (98-107) mmol/L Carbon Dioxide 27 (22-30) mmol/L Anion Gap 11.5 (5-15) MEQ/L BUN 10 (7-17) mg/dL Creatinine 0.52 (0.52-1.04) mg/dL Estimated GFR > 60.0 ML/MIN Glucose 102 (74-106) mg/dL POC Glucometer 78 (74 to 106) mg/dL Hemoglobin A1c (4.5-6.0) % Calcium 8.8 (8.4-10.2) mg/dL Total Bilirubin 1.00 (0.2-1.3) mg/dL AST 56 H (14-36) U/L ALT 32 (0-35) U/L Alkaline Phosphatase 78 (38-126) U/L Creatine Kinase (30-135) U/L Troponin I (0.000-0.034) ng/mL NT-Pro-B Natriuret Pep (0-900) pg/mL Serum Total Protein 6.7 (6.3-8.2) g/dL Albumin 3.7 (3.5-5.0) g/dL Influenza Type A Ag (NEGATIVE) Influenza Type B Ag (NEGATIVE) RSV (PCR) (Negative) SARS-CoV-2 (PCR) (NEGATIVE) Accuchecks Date 09/07/22 Date 09/06/22 Time 07:04 Time 20:48 - Radiology Impressions Radiology Exams & Impressions: Radiology Procedures Category Date Time Status CHEST 1 VIEW (PORTABLE) Stat Exams 09/06/22 13:35 Completed Assessment/Plan (1) Chest pain, rule out acute myocardial infarction Current Visit: Yes Status: Acute Assessment & Plan: HI ruled out, seems to be most likely a GI source/GERD. continue IV protonix. currently she is pain-free. Code(s): R07.9 - CHEST PAIN, UNSPECIFIED (2) Alcohol abuse Current Visit: Yes Status: Acute Assessment & Plan: required IV ativan last night, continue CIWA protocol and will monitor. patient would benefit from cessation of alcohol use. Code(s): F10.10 - ALCOHOL ABUSE, UNCOMPLICATED
[2022-09-07] MEDS ORDERED: SYNTHROID 75 MCG PO SCH (10:00)
[2022-09-07] MEDS ORDERED: FLUZONE QUAD 2022-2023 SYRINGE IM ONE (10:00)
[2022-09-07] MEDS ORDERED: PROTONIX 40 MG IV IV SCH (10:00)
[2022-09-07 11:23] VITALS: BP 124/61; PULSE 80; O2SAT 95
--- NOTE | 2022-09-07 14:20 | PCM.DCORD ---
- Discharge Disposition: Home, Self-Care Condition: Stable Prescriptions: New PANTOPRAZOLE 40 mg Tablet [Protonix 40MG Tablet] 40 mg PO QPM #30 tab Continue Levothyroxine Sodium [Synthroid] 75 mcg PO DAILY Empagliflozin [Jardiance] 10 mg PO DAILY Primidone 50 MG [Mysoline 50Mg] 1 ea PO TID Dulaglutide [Trulicity] 3 mg SQ WEEKLY Cephalexin Mh 250 mg [Keflex 250 mg] 250 mg PO DAILY Liraglutide [Victoza 2-Juan Pablo] 1.8 mg SQ DAILY Celecoxib 200 mg PO BID Discontinued Ibuprofen 600 mg PO Q6HPRN PRN 10 Days #20 tablet PRN Reason: Pain Follow up with: RASHID MCCOLLUM MD [Primary Care Provider] - 1 month
== END 2022-09-07 15:11 | disposition home or self-care (01) ==
LOC: ED 13:13 → MED SURG 15:52
PROVIDERS: ADMIT Family Medicine; ATTEND Family Medicine
DX: R07.9 Chest pain, unspecified (principal); F10.10 Alcohol abuse, uncomplicated; E11.9 Type 2 diabetes mellitus without complications; E78.5 Hyperlipidemia, unspecified; Z79.899 Other long term (current) drug therapy; Z20.828 Contact with and (suspected) exposure to other viral communicable diseases
CPT/HCPCS: 0241U; 36415; 71045; 80053; 82550; 82947; 83036; 83690; 83880; 84484; 85025; 85379; 93005; 93041; 96374; 96375; 99285; G0008; 90686; J2060; J2270; J2405; A9270-GY

== ENCOUNTER 2024-12-09 07:48 | Day surgery (SDC) | payer OTHER ==
[2012-09-24 08:57] VITALS: BP 143/84
[2024-12-09] MEDS ORDERED: LIDOCAINE HCL 1% AMPUL 5 ML IJ ONE (07:49)
[2024-12-09] MEDS ORDERED: propofoL IV ONE (09:57)
--- NOTE | 2024-12-09 12:30 | XRAY ---
Indication: Bilateral L4-S1 MBB. Intraoperative fluoroscopy provided for 8 seconds. Single digital spot images submitted for interpretation demonstrates posterior needle tips projecting over expected left and right L4-S1 nerve roots. Correlate with intraoperative findings/report.
--- NOTE | 2024-12-09 12:54 | XRAY ---
8 seconds of fluoroscopy was used in surgery for a bilateral L4-S1 MBB.
== END 2024-12-09 10:36 | disposition home or self-care (01) ==
LOC: SDC-PAIN 07:48
PROVIDERS: ATTEND Psychiatry & Neurology Pain Medicine
DX: M47.816 Spondylosis without myelopathy or radiculopathy, lumbar region (principal); E11.9 Type 2 diabetes mellitus without complications
CPT/HCPCS: 64493; 64494; 72020; 77002; 82947; J2704